=== PATIENT | female | born 1945 | race Caucasian/White ===

== ENCOUNTER 2018-11-23 06:58 | Observation (INO) ==
[2018-11-23] MEDS ORDERED: SODIUM CHLORIDE 0.9% 1,000 ML IV STA (07:29)
[2018-11-23] MEDS ORDERED: HYDROmorphone 2 MG/1 ML VIAL IV STA ×2 (07:29→10:53)
[2018-11-23] MEDS ORDERED: ONDANSETRON 4 MG/2 ML VIAL IV STA ×2 (07:29→09:34)
[2018-11-23 07:58] LABS: Basophils # 0.1 10*3/uL (0.0-0.2); Basophils % 0.2 % (0.0-0.8); Hematocrit 47.4 VOL% (35.7-47.0); Hemoglobin 15.4 GM/DL (12.0-16.0); Immature Granulocytes % 0.6 %; Immature Granulocytes Absolute 0.13 #; Lymphocytes # 0.9 10*3/uL (1.4-4.0); Lymphocytes % 4.2 % (21.3-54.2); Mean Corpuscular HGB Conc 32.5 GM/DL (32-36); Mean Platelet Volume 10.1 FL (9.6-12.0); Monocytes % 4.8 % (1.7-12.7); Neutrophils % 90.2 % (38.7-73.9); Platelet Count 429 T/CUMM (130-400); Red Blood Count 4.99 MC/CUMM (3.8-5.5); Red Cell Distribution Width 13.4 % (9.3-17.3); White Blood Count 20.8 T/CUMM (4-12)
[2018-11-23 08:16] LABS: Alanine Aminotransferase 19 U/L (13-56); Albumin 4.2 G/DL (3.4-5.0); Alkaline Phosphatase 104 U/L (45-117); Aspartate Amino Transferase 14 U/L (0-37); Bilirubin,Total < 0.39 MG/DL (0.2-1.0); Blood Urea Nitrogen 17 MG/DL (7-18); Calcium 9.5 MG/DL (8.5-10.1); Glucose 162 MG/DL (74-106); Osmolality,Calculated 280.7 MOS/KG (273-304); Total Protein 8.6 G/DL (6.4-8.3)
[2018-11-23 08:20] LABS: Hypochromasia 1+; Lymphocytes 3 % (20-55); Platelet Estimate Adequate; Segmented Neutrophils 91 % (50-85); Total Cells Counted 100
[2018-11-23 09:41] LABS: Apearance,Urine CLEAR (Clear); Bilirubin,Urine Negative (Negative); Blood, Urine Negative (Negative); Glucose,Urine (UA) Negative (Negative); Ketones,Urine 20 mg/dL (Negative); Nitrite,Urine Negative (Negative); Protein,Urine 30 MG/DL; Urine Color Yellow (Yellow); Urine Specific Gravity 1.057 (1.001-1.035); Urine Urobilinogen < 2.0 EU/DL (0.2-1.0)
[2018-11-23 09:55] LABS: Hyaline Casts,Urine Rare /LPF (0-3); Mucus,Urine Trace /LPF (Occasional); RBC,Urine Occasional /HPF (0-4); Squamous Epithelial Cell,Urine Rare /HPF (0-10); WBC,Urine Occasional /HPF (0-6)
[2018-11-23] MEDS ORDERED: ACETAMINOPHEN 325 MG TABLET PO PRN (11:54)
[2018-11-23] MEDS ORDERED: PROMETHAZINE 25 MG TABLET PO PRN (11:54)
[2018-11-23 12:45] LABS: Risk Ratio 3.29; Thyroid Stimulating Hormone 1.2 uIU/ml (0.358-3.74); VLDL CHOLESTEROL 15.4 MG/DL
[2018-11-23] MEDS: SODIUM CHLORIDE 0.9% 1,000 ML IV SCH (13:00)
[2018-11-23] MEDS: PANTOPRAZOLE 40 MG VIAL IV SCH (13:02)
[2018-11-23] MEDS: ENOXAPARIN 40 MG/0.4 ML SYRINGE SUBCUT SCH (13:05)
[2018-11-23] MEDS: metroNIDAZOLE INJ 500 MG in PREMIX 1 EACH IV SCH ×2 (13:05→20:53)
[2018-11-23] MEDS ORDERED: POTASSIUM CHLORIDE 20 MEQ TABLET PO ONE ×2 (15:02→21:00)
[2018-11-23] MEDS ORDERED: hydrALAZINE 25 MG TABLET PO PRN (15:03)
[2018-11-23] MEDS: CIPROFLOXACIN INJ 400 MG in PREMIX 1 EACH IV SCH (15:30)
[2018-11-23] MEDS: ONDANSETRON 4 MG/2 ML VIAL IV PRN ×2 (15:31→20:46)
[2018-11-23 15:49] LABS: Apearance,Urine Slightly Hazy (Clear); Bilirubin,Urine Negative (Negative); Blood, Urine Negative (Negative); Glucose,Urine (UA) Negative (Negative); Ketones,Urine 80 mg/dL (Negative); Nitrite,Urine Negative (Negative); Protein,Urine 30 MG/DL; RBC,Urine 8 /HPF (0-4); Squamous Epithelial Cell,Urine Occasional /HPF (0-10); Urine Color Yellow (Yellow); Urine Specific Gravity > 1.060 (1.001-1.035); Urine Urobilinogen < 2.0 EU/DL (0.2-1.0); WBC,Urine 2 /HPF (0-6)
[2018-11-23] MEDS ORDERED: SODIUM CHLORIDE 0.9% 1,000 ML IV ONE (15:53)
[2018-11-23] MEDS: LISINOPRIL 20 MG TABLET PO SCH (16:24)
[2018-11-23] MEDS: amLODIPine 10 MG TABLET PO SCH (16:24)
[2018-11-23] MEDS: GABAPENTIN 300 MG CAPSULE PO SCH ×2 (16:24→20:45)
[2018-11-23] MEDS ORDERED: ZALEPLON 5 MG CAPSULE PO PRN (22:05)
[2018-11-24] MEDS: ONDANSETRON 4 MG/2 ML VIAL IV PRN ×5 (01:22→20:32)
[2018-11-24] MEDS: SODIUM CHLORIDE 0.9% 1,000 ML IV SCH ×2 (01:24→14:08)
[2018-11-24] MEDS: GABAPENTIN 300 MG CAPSULE PO SCH ×4 (03:32→21:23)
[2018-11-24] MEDS: metroNIDAZOLE INJ 500 MG in PREMIX 1 EACH IV SCH ×3 (03:32→20:32)
[2018-11-24 05:22] LABS: Basophils # 0.1 10*3/uL (0.0-0.2); Basophils % 0.4 % (0.0-0.8); Hematocrit 39.2 VOL% (35.7-47.0); Hemoglobin 12.6 GM/DL (12.0-16.0); Immature Granulocytes % 0.5 %; Immature Granulocytes Absolute 0.06 #; Lymphocytes # 2.6 10*3/uL (1.4-4.0); Lymphocytes % 20.8 % (21.3-54.2); Mean Corpuscular HGB Conc 32.1 GM/DL (32-36); Mean Corpuscular Volume 97.5 FL (87-102); Mean Platelet Volume 10.7 FL (9.6-12.0); Neutrophils % 67.3 % (38.7-73.9); Platelet Count 356 T/CUMM (130-400); Red Blood Count 4.02 MC/CUMM (3.8-5.5); White Blood Count 12.3 T/CUMM (4-12)
[2018-11-24] MEDS: CIPROFLOXACIN INJ 400 MG in PREMIX 1 EACH IV SCH ×2 (05:29→21:23)
[2018-11-24 05:42] LABS: Osmolality,Calculated 289.7 MOS/KG (273-304)
[2018-11-24] MEDS: amLODIPine 10 MG TABLET PO SCH (08:31)
[2018-11-24] MEDS: PANTOPRAZOLE 40 MG VIAL IV SCH (08:31)
[2018-11-24] MEDS: ENOXAPARIN 40 MG/0.4 ML SYRINGE SUBCUT SCH (08:31)
[2018-11-24] MEDS: LISINOPRIL 20 MG TABLET PO SCH (08:31)
[2018-11-24] MEDS ORDERED: ZALEPLON 5 MG CAPSULE PO PRN (12:38)
[2018-11-24] MEDS ORDERED: HYDROmorphone 2 MG/1 ML VIAL IV PRN (12:39)
[2018-11-25] MEDS: SODIUM CHLORIDE 0.9% 1,000 ML IV SCH (02:47)
[2018-11-25] MEDS: GABAPENTIN 300 MG CAPSULE PO SCH ×3 (03:56→16:18)
[2018-11-25] MEDS: metroNIDAZOLE INJ 500 MG in PREMIX 1 EACH IV SCH ×2 (04:02→12:01)
[2018-11-25 05:48] LABS: Basophils % 0.6 % (0.0-0.8); Eosinophils # 0.1 10*3/uL (0.0-0.87); Eosinophils % 0.9 % (0.00-10.9); Hematocrit 35.6 VOL% (35.7-47.0); Hemoglobin 11.1 GM/DL (12.0-16.0); Immature Granulocytes % 0.5 %; Immature Granulocytes Absolute 0.03 #; Lymphocytes # 2.5 10*3/uL (1.4-4.0); Lymphocytes % 37.8 % (21.3-54.2); Mean Corpuscular HGB Conc 31.2 GM/DL (32-36); Mean Corpuscular Volume 100.3 FL (87-102); Mean Platelet Volume 10.5 FL (9.6-12.0); Monocytes % 9.7 % (1.7-12.7); Neutrophils % 50.5 % (38.7-73.9); Platelet Count 302 T/CUMM (130-400); Red Blood Count 3.55 MC/CUMM (3.8-5.5); Red Cell Distribution Width 14.2 % (9.3-17.3); White Blood Count 6.6 T/CUMM (4-12)
[2018-11-25 05:59] LABS: Calcium 8.7 MG/DL (8.5-10.1); Osmolality,Calculated 288.4 MOS/KG (273-304)
[2018-11-25] MEDS: ONDANSETRON 4 MG/2 ML VIAL IV PRN ×3 (06:27→16:19)
[2018-11-25] MEDS: LISINOPRIL 20 MG TABLET PO SCH (08:46)
[2018-11-25] MEDS: POTASSIUM CHLORIDE 20 MEQ TABLET PO SCH ×2 (08:46→12:01)
[2018-11-25] MEDS: amLODIPine 10 MG TABLET PO SCH (08:47)
[2018-11-25] MEDS: CIPROFLOXACIN INJ 400 MG in PREMIX 1 EACH IV SCH (08:47)
[2018-11-25] MEDS: ENOXAPARIN 40 MG/0.4 ML SYRINGE SUBCUT SCH (08:48)
[2018-11-25] MEDS: PANTOPRAZOLE 40 MG VIAL IV SCH (08:48)
[2018-11-25] MEDS ORDERED: POTASSIUM CHLORIDE 20 MEQ TABLET PO SCH (13:57)
[2018-11-25 15:59] VITALS: BP 147/72
== END 2018-11-25 18:30 | disposition home or self-care (01) ==
LOC: N.EDINP 06:58 → N.ED 06:58 → N.2E 13:24
PROVIDERS: ADMIT Internal Medicine; ATTEND Internal Medicine

== ENCOUNTER 2020-02-14 18:04 | Observation (INO) ==
[2020-02-14] MEDS ORDERED: methylPREDNISolone ACETATE 40 MG/1 ML VIAL IM STA (18:24)
[2020-02-14] MEDS ORDERED: DEXAMETHASONE 4 MG/1 ML VIAL IM STA (18:24)
[2020-02-14] MEDS ORDERED: KETOROLAC 60 MG/2 ML VIAL IM STA (18:24)
[2020-02-14] MEDS ORDERED: MORPHINE 4 MG/1 ML VIAL IM STA (18:24)
[2020-02-14] MEDS ORDERED: HYDROmorphone 2 MG/1 ML VIAL IV STA (19:43)
[2020-02-14 20:02] LABS: Basophils # 0.1 10*3/uL (0.0-0.2); Basophils % 0.6 % (0.0-0.8); Eosinophils # 0.2 10*3/uL (0.0-0.87); Eosinophils % 1.3 % (0.00-10.9); Hematocrit 43.3 VOL% (35.7-47.0); Hemoglobin 14.1 GM/DL (12.0-16.0); Immature Granulocytes % 0.5 %; Immature Granulocytes Absolute 0.06 #; Lymphocytes # 1.5 10*3/uL (1.4-4.0); Lymphocytes % 12.4 % (21.3-54.2); Mean Corpuscular HGB Conc 32.6 GM/DL (32-36); Mean Platelet Volume 9.8 FL (9.6-12.0); Monocytes % 9.7 % (1.7-12.7); Neutrophils % 75.5 % (38.7-73.9); Platelet Count 459 T/CUMM (130-400); Red Blood Count 4.33 MC/CUMM (3.8-5.5); Red Cell Distribution Width 14.8 % (9.3-17.3); White Blood Count 12.3 T/CUMM (4-12)
[2020-02-14 20:17] LABS: Albumin 3.7 G/DL (3.4-5.0); Bilirubin,Total 0.5 MG/DL (0.2-1.0); Calcium 8.9 MG/DL (8.5-10.1); Osmolality,Calculated 280.5 MOS/KG (273-304); Total Protein 7.2 G/DL (6.4-8.3)
[2020-02-14] MEDS ORDERED: DOCUSATE SODIUM 100 MG CAPSULE PO PRN (21:39)
[2020-02-14] MEDS ORDERED: ACETAMINOPHEN 325 MG TABLET PO PRN (21:39)
[2020-02-14] MEDS ORDERED: ONDANSETRON 4 MG/2 ML VIAL IV PRN (21:39)
[2020-02-14] MEDS ORDERED: ORPHENADRINE 60 MG/2 ML VIAL IV PRN (21:43)
[2020-02-14] MEDS ORDERED: IBUPROFEN 600 MG TABLET PO PRN (22:37)
[2020-02-14] MEDS: ENOXAPARIN 40 MG/0.4 ML SYRINGE SUBCUT SCH (23:46)
[2020-02-14] MEDS: ZALEPLON 5 MG CAPSULE PO PRN (23:47)
[2020-02-15] MEDS: HYDROmorphone 2 MG/1 ML VIAL IV PRN ×5 (03:13→21:04)
[2020-02-15 06:22] LABS: Basophils % 0.1 % (0.0-0.8); Hematocrit 40.9 VOL% (35.7-47.0); Hemoglobin 13.4 GM/DL (12.0-16.0); Immature Granulocytes % 0.4 %; Immature Granulocytes Absolute 0.03 #; Lymphocytes # 0.6 10*3/uL (1.4-4.0); Lymphocytes % 7.6 % (21.3-54.2); Mean Corpuscular HGB Conc 32.8 GM/DL (32-36); Mean Corpuscular Volume 99.5 FL (87-102); Mean Platelet Volume 10.6 FL (9.6-12.0); Monocytes % 4.7 % (1.7-12.7); Neutrophils % 87.2 % (38.7-73.9); Platelet Count 426 T/CUMM (130-400); Red Blood Count 4.11 MC/CUMM (3.8-5.5); Red Cell Distribution Width 15.1 % (9.3-17.3); White Blood Count 8.3 T/CUMM (4-12)
[2020-02-15 07:14] LABS: Calcium 8.8 MG/DL (8.5-10.1); Osmolality,Calculated 293.8 MOS/KG (273-304)
[2020-02-15] MEDS ORDERED: hydrALAZINE 25 MG TABLET PO PRN (08:50)
[2020-02-15] MEDS ORDERED: hydrALAZINE 20 MG/1 ML VIAL IV PRN (08:54)
[2020-02-15] MEDS: amLODIPine 10 MG TABLET PO SCH (10:07)
[2020-02-15] MEDS: PANTOPRAZOLE 40 MG TABLET PO SCH ×2 (10:07→21:05)
[2020-02-15] MEDS: lisinopriL 20 MG TABLET PO SCH (10:08)
[2020-02-15] MEDS: ENOXAPARIN 40 MG/0.4 ML SYRINGE SUBCUT SCH (21:05)
[2020-02-15] MEDS: ZALEPLON 5 MG CAPSULE PO PRN (22:59)
[2020-02-16] MEDS: HYDROmorphone 2 MG/1 ML VIAL IV PRN (02:03)
[2020-02-16 03:55] LABS: Basophils % 0.2 % (0.0-0.8); Eosinophils % 0.1 % (0.00-10.9); Hematocrit 38.7 VOL% (35.7-47.0); Hemoglobin 12.2 GM/DL (12.0-16.0); Immature Granulocytes % 0.6 %; Immature Granulocytes Absolute 0.07 #; Lymphocytes # 1.7 10*3/uL (1.4-4.0); Mean Corpuscular HGB Conc 31.5 GM/DL (32-36); Mean Corpuscular Volume 101.6 FL (87-102); Mean Platelet Volume 9.9 FL (9.6-12.0); Monocytes % 10.6 % (1.7-12.7); Neutrophils % 74.5 % (38.7-73.9); Platelet Count 382 T/CUMM (130-400); Red Blood Count 3.81 MC/CUMM (3.8-5.5); Red Cell Distribution Width 15.4 % (9.3-17.3); White Blood Count 11.9 T/CUMM (4-12)
[2020-02-16 04:18] LABS: Calcium 8.4 MG/DL (8.5-10.1); Osmolality,Calculated 284.3 MOS/KG (273-304)
[2020-02-16] MEDS: PANTOPRAZOLE 40 MG TABLET PO SCH (08:38)
[2020-02-16] MEDS: amLODIPine 10 MG TABLET PO SCH (08:38)
[2020-02-16] MEDS: lisinopriL 20 MG TABLET PO SCH (08:38)
[2020-02-16] MEDS ORDERED: BUTALBITAL/ACETAMIN/CAFFEINE 50-325-40 MG TABLET PO ONE (09:30)
[2020-02-16 12:37] VITALS: BP 175/77
== END 2020-02-16 16:11 | disposition home or self-care (01) ==
LOC: N.EDINP 18:04 → N.ED 18:04 → N.EDINP 21:40 → N.3E 21:43
PROVIDERS: ADMIT Family Medicine; ATTEND Family Medicine

== ENCOUNTER 2020-05-02 19:15 | Inpatient (IN) ==
[2020-05-02] MEDS ORDERED: SODIUM CHLORIDE 0.9% 500 ML IV STA (19:58)
[2020-05-02] MEDS ORDERED: NALOXONE 0.4 MG/ML VIAL IV STA (19:58)
[2020-05-02 20:07] LABS: Basophils # 0.1 10*3/uL (0.0-0.2); Basophils % 0.6 % (0.0-0.8); Eosinophils # 0.8 10*3/uL (0.0-0.87); Eosinophils % 6.4 % (0.00-10.9); Hematocrit 35.9 VOL% (35.7-47.0); Hemoglobin 11.5 GM/DL (12.0-16.0); Immature Granulocytes % 0.3 %; Immature Granulocytes Absolute 0.04 #; Lymphocytes # 1.4 10*3/uL (1.4-4.0); Lymphocytes % 11.6 % (21.3-54.2); Mean Corpuscular Volume 99.4 FL (87-102); Mean Platelet Volume 10.4 FL (9.6-12.0); Monocytes % 9.4 % (1.7-12.7); Neutrophils % 71.7 % (38.7-73.9); Platelet Count 230 T/CUMM (130-400); Red Blood Count 3.61 MC/CUMM (3.8-5.5); Red Cell Distribution Width 12.2 % (9.3-17.3); White Blood Count 12.2 T/CUMM (4-12)
[2020-05-02 20:23] LABS: PT Patient Result 10.7 SECS (9.8-11.9)
[2020-05-02 20:32] LABS: Alanine Aminotransferase 23 U/L (13-56); Albumin 3.2 G/DL (3.4-5.0); Alkaline Phosphatase 99 U/L (45-117); Aspartate Amino Transferase 101 U/L (0-37); Blood Urea Nitrogen 12 MG/DL (7-18); CKMB % 1.1 %; Calcium 8.5 MG/DL (8.5-10.1); Estimated Glom Filtration Rate 56 ML/MIN; Glucose 114 MG/DL (74-106); Osmolality,Calculated 270.1 MOS/KG (273-304); Troponin I < 0.015 NG/ML (0.00-0.045)
[2020-05-02 20:38] LABS: ABG Base Excess -0.1 MMOL/L (-2.5-2.5); ABG HCO3 24.2 MMOL/L (20-26); ABG PCO2 41.6 MM HG (35-48); ABG PH 7.386 (7.35-7.45); ABG PO2 57.1 MM HG (80-95); ABG TCO2 22.6 MMOL/L (23-27); Allen Test Positive
[2020-05-02] MEDS ORDERED: VANCOMYCIN INJ 1,000 MG in SODIUM CHLORIDE 0.9% 250 ML IV STA (21:12)
[2020-05-02] MEDS ORDERED: DOCUSATE SODIUM 100 MG CAPSULE PO PRN (21:25)
[2020-05-02] MEDS ORDERED: hydrALAZINE 20 MG/1 ML VIAL IV PRN (21:25)
[2020-05-02] MEDS ORDERED: ONDANSETRON 4 MG/2 ML VIAL IV PRN (21:25)
[2020-05-02] MEDS ORDERED: DEXTROSE 50% 25 GM/50 ML VIAL IV PRN (21:25)
[2020-05-02] MEDS ORDERED: guaiFENesin/DM ER 600-30 MG TABLET PO PRN (21:25)
[2020-05-02] MEDS ORDERED: GLUCAGON 1 MG VIAL IM PRN (21:25)
[2020-05-02] MEDS ORDERED: NICOTINE 21 MG/24 HR PATCH TRANSDERM PRN (21:25)
[2020-05-02 22:26] LABS: Bilirubin,Urine Negative (Negative); Blood, Urine Moderate mg/dL (Negative); Glucose,Urine (UA) Negative (Negative); Hyaline Casts,Urine 3 /LPF (0-3); Ketones,Urine Negative (Negative); Mucus,Urine Occasional /LPF (Occasional); Nitrite,Urine Negative (Negative); Protein,Urine 30 MG/DL; RBC,Urine 1 /HPF (0-4); Squamous Epithelial Cell,Urine Occasional /HPF (0-10); Urine Appearance CLEAR (Clear); Urine Color Amber (Yellow); Urine Specific Gravity 1.024 (1.001-1.035); Urine Urobilinogen < 2.0 EU/DL (0.2-1.0); WBC,Urine 4 /HPF (0-6)
[2020-05-02 22:40] LABS: Barbiturates Screen,Urine Negative (Negative); Benzodiazepines Screen,Urine Positive (Negative); Cannabinoid Screen,Urine Negative (Negative); Opiate Screen,Urine Positive (Negative); Phencyclidine Screen,Urine Negative (Negative)
[2020-05-02] MEDS: CLINDAMYCIN INJ 600 MG in PREMIX 1 EACH IV SCH (23:39)
[2020-05-02] MEDS: LEVOFLOXACIN INJ 750 MG in PREMIX 1 EACH IV SCH (23:58)
[2020-05-03] MEDS: ALBUTEROL 2.5 MG/3 ML NEB RESP TX SCH ×4 (00:22→19:08)
[2020-05-03] MEDS ORDERED: INFLUENZA VIRUS VACCINE 0.5 ML SYRINGE IM ONE (03:41)
[2020-05-03] MEDS: SODIUM CHLORIDE 0.9% 1,000 ML IV SCH ×3 (03:50→16:42)
[2020-05-03] MEDS: MORPHINE 4 MG/1 ML VIAL IV PRN ×2 (03:51→10:41)
[2020-05-03 05:37] LABS: Basophils % 0.3 % (0.0-0.8); Eosinophils # 0.7 10*3/uL (0.0-0.87); Eosinophils % 8.4 % (0.00-10.9); Hematocrit 35.4 VOL% (35.7-47.0); Hemoglobin 11.5 GM/DL (12.0-16.0); Immature Granulocytes % 0.1 %; Immature Granulocytes Absolute 0.01 #; Lymphocytes # 1.5 10*3/uL (1.4-4.0); Lymphocytes % 16.8 % (21.3-54.2); Mean Corpuscular HGB Conc 32.5 GM/DL (32-36); Mean Corpuscular Volume 97.5 FL (87-102); Mean Platelet Volume 10.6 FL (9.6-12.0); Monocytes % 10.9 % (1.7-12.7); Neutrophils % 63.5 % (38.7-73.9); Platelet Count 224 T/CUMM (130-400); Red Blood Count 3.63 MC/CUMM (3.8-5.5); Red Cell Distribution Width 11.9 % (9.3-17.3); White Blood Count 8.7 T/CUMM (4-12)
[2020-05-03 06:00] LABS: Calcium 8.3 MG/DL (8.5-10.1); Osmolality,Calculated 276.4 MOS/KG (273-304)
[2020-05-03] MEDS: CLINDAMYCIN INJ 600 MG in PREMIX 1 EACH IV SCH ×3 (06:07→21:38)
[2020-05-03] MEDS: CITALOPRAM 20 MG TABLET PO SCH (08:59)
[2020-05-03] MEDS: METOPROLOL SUCCINATE XL 25 MG TABLET PO SCH (08:59)
[2020-05-03] MEDS: ENOXAPARIN 40 MG/0.4 ML SYRINGE SUBCUT SCH (08:59)
[2020-05-03] MEDS: PANTOPRAZOLE 40 MG TABLET PO SCH (08:59)
[2020-05-03] MEDS: amLODIPine 10 MG TABLET PO SCH (08:59)
[2020-05-03] MEDS: ACETAMINOPHEN 325 MG TABLET PO PRN (08:59)
[2020-05-03] MEDS: METHOCARBAMOL 750 MG TABLET PO SCH ×3 (09:00→21:24)
[2020-05-03] MEDS ORDERED: VANCOMYCIN INJ 1,250 MG in SODIUM CHLORIDE 0.9% 250 ML IV SCH (18:00)
[2020-05-03] MEDS: diphenhydrAMINE CAP 25 MG CAPSULE PO PRN (21:24)
[2020-05-03] MEDS: LEVOFLOXACIN INJ 750 MG in PREMIX 1 EACH IV SCH (23:45)
[2020-05-04] MEDS: ALBUTEROL 2.5 MG/3 ML NEB RESP TX SCH ×4 (01:46→19:40)
[2020-05-04] MEDS: ACETAMINOPHEN 325 MG TABLET PO PRN ×4 (02:26→21:41)
[2020-05-04] MEDS: diphenhydrAMINE CAP 25 MG CAPSULE PO PRN (03:02)
[2020-05-04] MEDS: MORPHINE 4 MG/1 ML VIAL IV PRN (03:50)
[2020-05-04 05:49] LABS: Basophils % 0.5 % (0.0-0.8); Eosinophils # 0.2 10*3/uL (0.0-0.87); Eosinophils % 2.4 % (0.00-10.9); Hematocrit 33.6 VOL% (35.7-47.0); Immature Granulocytes % 0.4 %; Immature Granulocytes Absolute 0.03 #; Lymphocytes # 1.2 10*3/uL (1.4-4.0); Lymphocytes % 15.2 % (21.3-54.2); Mean Corpuscular HGB Conc 32.7 GM/DL (32-36); Mean Corpuscular Volume 96.8 FL (87-102); Mean Platelet Volume 10.6 FL (9.6-12.0); Monocytes % 14.2 % (1.7-12.7); Neutrophils % 67.3 % (38.7-73.9); Platelet Count 241 T/CUMM (130-400); Red Blood Count 3.47 MC/CUMM (3.8-5.5); Red Cell Distribution Width 11.9 % (9.3-17.3); White Blood Count 7.8 T/CUMM (4-12)
[2020-05-04] MEDS: CLINDAMYCIN INJ 600 MG in PREMIX 1 EACH IV SCH ×3 (06:00→21:45)
[2020-05-04 06:19] LABS: Calcium 8.4 MG/DL (8.5-10.1)
[2020-05-04] MEDS: SODIUM CHLORIDE 0.9% 1,000 ML IV SCH ×2 (07:03→11:01)
[2020-05-04] MEDS: ENOXAPARIN 40 MG/0.4 ML SYRINGE SUBCUT SCH (10:04)
[2020-05-04] MEDS: METHOCARBAMOL 750 MG TABLET PO SCH ×3 (10:05→21:40)
[2020-05-04] MEDS: METOPROLOL SUCCINATE XL 25 MG TABLET PO SCH (10:06)
[2020-05-04] MEDS: CITALOPRAM 20 MG TABLET PO SCH (10:06)
[2020-05-04] MEDS: POTASSIUM CHLORIDE 20 MEQ TABLET PO PRN ×4 (10:06→17:26)
[2020-05-04] MEDS: PANTOPRAZOLE 40 MG TABLET PO SCH (10:06)
[2020-05-04] MEDS: amLODIPine 10 MG TABLET PO SCH (10:06)
[2020-05-04] MEDS ORDERED: MAGNESIUM SULF RIDER 2 GM in PREMIX 1 EACH IV ONE (13:24)
[2020-05-04] MEDS: GABAPENTIN 300 MG CAPSULE PO SCH (21:40)
[2020-05-04] MEDS: ZALEPLON 5 MG CAPSULE PO SCH (21:40)
[2020-05-05] MEDS: ALBUTEROL 2.5 MG/3 ML NEB RESP TX SCH ×4 (01:34→19:52)
[2020-05-05] MEDS: POTASSIUM CHLORIDE 20 MEQ TABLET PO PRN ×3 (02:18→06:02)
[2020-05-05 05:56] LABS: Calcium 8.8 MG/DL (8.5-10.1); Osmolality,Calculated 279.1 MOS/KG (273-304)
[2020-05-05] MEDS: CLINDAMYCIN INJ 600 MG in PREMIX 1 EACH IV SCH ×3 (06:01→21:42)
[2020-05-05] MEDS: ENOXAPARIN 40 MG/0.4 ML SYRINGE SUBCUT SCH (08:08)
[2020-05-05] MEDS: ACETAMINOPHEN 325 MG TABLET PO PRN ×4 (08:09→21:40)
[2020-05-05] MEDS: PANTOPRAZOLE 40 MG TABLET PO SCH (08:09)
[2020-05-05] MEDS: GABAPENTIN 300 MG CAPSULE PO SCH ×2 (08:09→21:39)
[2020-05-05] MEDS: amLODIPine 10 MG TABLET PO SCH (08:09)
[2020-05-05] MEDS: METHOCARBAMOL 750 MG TABLET PO SCH ×3 (08:09→21:39)
[2020-05-05] MEDS: CITALOPRAM 20 MG TABLET PO SCH (08:09)
[2020-05-05] MEDS: METOPROLOL SUCCINATE XL 25 MG TABLET PO SCH (08:09)
[2020-05-05] MEDS: ZALEPLON 5 MG CAPSULE PO SCH (21:40)
[2020-05-06] MEDS: ALBUTEROL 2.5 MG/3 ML NEB RESP TX SCH ×2 (00:24→07:27)
[2020-05-06] MEDS: ACETAMINOPHEN 325 MG TABLET PO PRN ×3 (01:27→11:29)
[2020-05-06] MEDS: CLINDAMYCIN INJ 600 MG in PREMIX 1 EACH IV SCH (05:40)
[2020-05-06 06:10] LABS: Basophils # 0.1 10*3/uL (0.0-0.2); Basophils % 0.6 % (0.0-0.8); Eosinophils # 0.4 10*3/uL (0.0-0.87); Hematocrit 37.4 VOL% (35.7-47.0); Hemoglobin 12.3 GM/DL (12.0-16.0); Immature Granulocytes % 0.4 %; Immature Granulocytes Absolute 0.03 #; Lymphocytes # 1.9 10*3/uL (1.4-4.0); Lymphocytes % 24.3 % (21.3-54.2); Mean Corpuscular HGB Conc 32.9 GM/DL (32-36); Mean Corpuscular Volume 95.9 FL (87-102); Mean Platelet Volume 10.4 FL (9.6-12.0); Monocytes % 11.8 % (1.7-12.7); Neutrophils % 57.9 % (38.7-73.9); Platelet Count 320 T/CUMM (130-400); Red Cell Distribution Width 12.8 % (9.3-17.3)
[2020-05-06 06:27] LABS: Osmolality,Calculated 274.5 MOS/KG (273-304)
[2020-05-06] MEDS: amLODIPine 10 MG TABLET PO SCH (08:32)
[2020-05-06] MEDS: CITALOPRAM 20 MG TABLET PO SCH (08:32)
[2020-05-06] MEDS: METOPROLOL SUCCINATE XL 25 MG TABLET PO SCH (08:32)
[2020-05-06] MEDS: GABAPENTIN 300 MG CAPSULE PO SCH (08:32)
[2020-05-06] MEDS: ENOXAPARIN 40 MG/0.4 ML SYRINGE SUBCUT SCH (08:33)
[2020-05-06] MEDS: PANTOPRAZOLE 40 MG TABLET PO SCH (08:35)
[2020-05-06] MEDS: METHOCARBAMOL 750 MG TABLET PO SCH (08:35)
[2020-05-06] MEDS ORDERED: INFLUENZA VIRUS VACCINE 0.5 ML SYRINGE IM ONE (11:25)
[2020-05-06 11:54] VITALS: BP 175/75
== END 2020-05-06 12:20 | disposition home health service (06) | DRG 917 ==
LOC: EDUNIT# → EDBD → N.ED 19:15 → SUATTDRO 21:25 → N.EDINP 21:25 → N.TELES 05-03 04:18
PROVIDERS: ADMIT Hospitalist; ATTEND Family Medicine

== ENCOUNTER 2020-11-10 11:49 | Inpatient (IN) ==
[2020-11-10] MEDS ORDERED: ONDANSETRON 4 MG/2 ML VIAL IV STA (12:29)
[2020-11-10] MEDS ORDERED: SODIUM CHLORIDE 0.9% 2,000 ML IV STA (12:29)
[2020-11-10 12:58] LABS: Basophils % 0.1 % (0.0-0.8); Hematocrit 41.9 VOL% (35.7-47.0); Hemoglobin 14.3 GM/DL (12.0-16.0); Immature Granulocytes % 0.9 %; Immature Granulocytes Absolute 0.19 #; Lymphocytes # 0.5 10*3/uL (1.4-4.0); Lymphocytes % 2.2 % (21.3-54.2); Mean Corpuscular HGB Conc 34.1 GM/DL (32-36); Mean Corpuscular Volume 100.5 FL (87-102); Mean Platelet Volume 10.7 FL (9.6-12.0); Monocytes % 8.5 % (1.7-12.7); NRBC # 0.03 10*3/uL; Neutrophils % 88.3 % (38.7-73.9); Platelet Count 443 T/CUMM (130-400); Red Blood Count 4.17 MC/CUMM (3.8-5.5); Red Cell Distribution Width 15.4 % (9.3-17.3); White Blood Count 20.8 T/CUMM (4-12)
[2020-11-10] MEDS ORDERED: ASPIRIN CHEW 81 MG TABLET PO STA (13:10)
[2020-11-10] MEDS ORDERED: PANTOPRAZOLE 40 MG VIAL IV STA (13:11)
[2020-11-10 13:23] LABS: Alanine Aminotransferase 52 U/L (13-56); Albumin 4.5 G/DL (3.4-5.0); Alkaline Phosphatase 122 U/L (45-117); Aspartate Amino Transferase 248 U/L (0-37); Blood Urea Nitrogen 45 MG/DL (7-18); Calcium 10.8 MG/DL (8.5-10.1); Carbon Dioxide 28 MMOL/L (21-32); Estimated Glom Filtration Rate 14 ML/MIN; Glucose 166 MG/DL (74-106); Osmolality,Calculated 294.4 MOS/KG (273-304); Sodium 140 MMOL/L (136-145); Total Protein 8.4 G/DL (6.4-8.2)
[2020-11-10 13:26] LABS: Potassium 2.1 MMOL/L (3.5-5.1)
[2020-11-10] MEDS: POTASSIUM CHLORIDE RIDER 10 MEQ in PREMIX 1 EACH IV PRN (13:43)
[2020-11-10] MEDS ORDERED: POTASSIUM CHLORIDE 20 MEQ TABLET PO ONE ×2 (14:12→19:01)
[2020-11-10] MEDS ORDERED: METOPROLOL TARTRATE 25 MG TABLET PO STA (14:15)
[2020-11-10 14:41] LABS: INR 1.1; PT Patient Result 11.7 SECS (9.8-11.9); Partial Thromboplastin Time 34.5 SECS (23.9-33.8)
[2020-11-10 15:05] LABS: Hematocrit 39.8 VOL% (35.7-47.0); Hemoglobin 13.6 GM/DL (12.0-16.0)
[2020-11-10] MEDS: SODIUM CHLORIDE 0.9% 1,000 ML IV SCH (15:05)
[2020-11-10] MEDS: ONDANSETRON 4 MG/2 ML VIAL IV PRN ×3 (15:05→22:54)
[2020-11-10 15:09] LABS: Bacteria,Urine Many /HPF (Few); Bilirubin,Urine Negative (Negative); Blood, Urine Large mg/dL (Negative); Glucose,Urine (UA) Negative (Negative); Hyaline Casts,Urine 30 /LPF (0-3); Ketones,Urine Negative (Negative); Mucus,Urine Occasional /LPF (Occasional); Nitrite,Urine Positive (Negative); Protein,Urine 30 MG/DL; RBC,Urine 5 /HPF (0-4); Squamous Epithelial Cell,Urine Occasional /HPF (0-10); Urine Appearance Slightly Hazy (Clear); Urine Color Yellow (Yellow); Urine Specific Gravity 1.009 (1.001-1.035); Urine Urobilinogen < 2.0 EU/DL (0.2-1.0); WBC,Urine 6 /HPF (0-6)
[2020-11-10 15:40] LABS: Bilirubin,Total 0.9 MG/DL (0.2-1.0); Calcium 9.3 MG/DL (8.5-10.1); Total Protein 8.2 G/DL (6.4-8.2)
[2020-11-10 15:43] LABS: Potassium 2.5 MMOL/L (3.5-5.1)
[2020-11-10] MEDS ORDERED: POTASSIUM CHLORIDE RIDER 100 ML IV ONE (16:20)
[2020-11-10] MEDS: ATORVASTATIN 40 MG TABLET PO SCH (16:22)
[2020-11-10] MEDS: POTASSIUM CHLORIDE RIDER 10 MEQ in PREMIX 1 EACH IV SCH ×5 (16:25→21:54)
[2020-11-10] MEDS: PANTOPRAZOLE INJ 200 MG in SODIUM CHLORIDE 0.9% 250 ML IV SCH (18:00)
[2020-11-10] MEDS ORDERED: NITROGLYCERIN SL 0.4 MG TABLET SL PRN (18:36)
[2020-11-10 19:17] LABS: Band Neutrophils 2 % (0-10); Lymphocytes 4 % (20-55); Macrocytosis Slight; Platelet Estimate Increased; Segmented Neutrophils 89 % (50-85); Total Cells Counted 100
[2020-11-10] MEDS: ENOXAPARIN 30 MG/0.3 ML SYRINGE SUBCUT SCH (19:36)
[2020-11-10] MEDS: MORPHINE 4 MG/1 ML VIAL IV PRN ×2 (19:47→22:59)
[2020-11-10] MEDS: carvediloL 6.25 MG TABLET PO SCH (21:51)
[2020-11-10 21:52] LABS: Hematocrit 38.1 VOL% (35.7-47.0); Hemoglobin 12.5 GM/DL (12.0-16.0)
[2020-11-10 22:08] LABS: Calcium 9.2 MG/DL (8.5-10.1); Potassium 2.8 MMOL/L (3.5-5.1)
[2020-11-11] MEDS: SODIUM CHLORIDE 0.9% 1,000 ML IV SCH ×3 (00:04→18:54)
[2020-11-11] MEDS: ZALEPLON 5 MG CAPSULE PO PRN ×2 (00:19→22:06)
[2020-11-11] MEDS: NITROGLYCERIN 2% OINT 1 INCH/GM PACK TOP SCH ×4 (01:02→18:54)
[2020-11-11] MEDS: POTASSIUM CHLORIDE RIDER 10 MEQ in PREMIX 1 EACH IV PRN ×4 (02:42→09:44)
[2020-11-11 05:14] LABS: Basophils % 0.1 % (0.0-0.8); Hematocrit 36.3 VOL% (35.7-47.0); Hemoglobin 11.6 GM/DL (12.0-16.0); Immature Granulocytes % 1.4 %; Immature Granulocytes Absolute 0.41 #; Lymphocytes # 0.6 10*3/uL (1.4-4.0); Lymphocytes % 2.1 % (21.3-54.2); Mean Corpuscular Volume 105.8 FL (87-102); Mean Platelet Volume 10.8 FL (9.6-12.0); Monocytes % 6.6 % (1.7-12.7); NRBC # 0.02 10*3/uL; Neutrophils % 89.8 % (38.7-73.9); Platelet Count 275 T/CUMM (130-400); Red Blood Count 3.43 MC/CUMM (3.8-5.5)
[2020-11-11 05:32] LABS: Lymphocytes 3 % (20-55); Segmented Neutrophils 94 % (50-85); Total Cells Counted 100
[2020-11-11 05:33] LABS: Platelet Estimate Adequate
[2020-11-11 05:55] LABS: Calcium 8.9 MG/DL (8.5-10.1); Osmolality,Calculated 297.8 MOS/KG (273-304); Potassium 4.8 MMOL/L (3.5-5.1); Risk Ratio 2.07; Thyroid Stimulating Hormone 0.497 uIU/ml (0.358-3.74); VLDL CHOLESTEROL 19.8 MG/DL
[2020-11-11] MEDS: ONDANSETRON 4 MG/2 ML VIAL IV PRN ×3 (07:27→21:02)
[2020-11-11 08:09] LABS: Hematocrit 34.5 VOL% (35.7-47.0); Hemoglobin 11.5 GM/DL (12.0-16.0)
[2020-11-11] MEDS: ASPIRIN EC 81 MG TABLET PO SCH (09:43)
[2020-11-11] MEDS: ATORVASTATIN 40 MG TABLET PO SCH (09:43)
[2020-11-11] MEDS: amLODIPine 5 MG TABLET PO SCH (09:43)
[2020-11-11] MEDS: MORPHINE 4 MG/1 ML VIAL IV PRN ×3 (09:43→21:03)
[2020-11-11] MEDS: carvediloL 6.25 MG TABLET PO SCH ×2 (09:43→20:55)
[2020-11-11] MEDS: ENOXAPARIN 30 MG/0.3 ML SYRINGE SUBCUT SCH (18:54)
[2020-11-11] MEDS: PANTOPRAZOLE INJ 200 MG in SODIUM CHLORIDE 0.9% 250 ML IV SCH (18:54)
[2020-11-12] MEDS: SODIUM CHLORIDE 0.9% 1,000 ML IV SCH ×5 (00:12→19:00)
[2020-11-12] MEDS: NITROGLYCERIN 2% OINT 1 INCH/GM PACK TOP SCH ×4 (01:15→17:57)
[2020-11-12] MEDS: ONDANSETRON 4 MG/2 ML VIAL IV PRN ×2 (01:15→09:41)
[2020-11-12] MEDS: MORPHINE 4 MG/1 ML VIAL IV PRN ×3 (03:04→17:48)
[2020-11-12 05:22] LABS: Albumin 2.5 G/DL (3.4-5.0); Bilirubin,Total 0.5 MG/DL (0.2-1.0); Calcium 8.7 MG/DL (8.5-10.1); Osmolality,Calculated 285.4 MOS/KG (273-304); Potassium 4.2 MMOL/L (3.5-5.1); Total Protein 6.2 G/DL (6.4-8.2)
[2020-11-12 06:40] LABS: Basophils % 0.1 % (0.0-0.8); Hematocrit 34.7 VOL% (35.7-47.0); Hemoglobin 10.9 GM/DL (12.0-16.0); Immature Granulocytes % 0.8 %; Immature Granulocytes Absolute 0.18 #; Lymphocytes # 0.8 10*3/uL (1.4-4.0); Lymphocytes % 3.6 % (21.3-54.2); Mean Corpuscular HGB Conc 31.4 GM/DL (32-36); Mean Corpuscular Volume 107.8 FL (87-102); Monocytes % 7.2 % (1.7-12.7); Neutrophils % 88.3 % (38.7-73.9); Platelet Count 213 T/CUMM (130-400); Red Blood Count 3.22 MC/CUMM (3.8-5.5); Red Cell Distribution Width 15.3 % (9.3-17.3); White Blood Count 23.6 T/CUMM (4-12)
[2020-11-12 06:59] LABS: Hypochromasia 1+; Lymphocytes 3 % (20-55); Microcytosis 1+; Platelet Estimate Adequate; Segmented Neutrophils 91 % (50-85); Total Cells Counted 100
[2020-11-12] MEDS: ASPIRIN EC 81 MG TABLET PO SCH (08:27)
[2020-11-12] MEDS: ATORVASTATIN 40 MG TABLET PO SCH (08:27)
[2020-11-12] MEDS: amLODIPine 5 MG TABLET PO SCH (08:27)
[2020-11-12] MEDS: carvediloL 6.25 MG TABLET PO SCH ×2 (08:27→20:33)
[2020-11-12] MEDS ORDERED: POTASSIUM PHOSPHATE 20 MMOL in SODIUM CHLORIDE 0.9% 100 ML IV ONE (10:00)
[2020-11-12] MEDS: ENOXAPARIN 30 MG/0.3 ML SYRINGE SUBCUT SCH (18:01)
[2020-11-13] MEDS: SODIUM CHLORIDE 0.9% 1,000 ML IV SCH ×4 (00:40→22:50)
[2020-11-13] MEDS: NITROGLYCERIN 2% OINT 1 INCH/GM PACK TOP SCH ×4 (00:40→17:15)
[2020-11-13] MEDS: ONDANSETRON 4 MG/2 ML VIAL IV PRN ×3 (01:14→17:15)
[2020-11-13] MEDS: MORPHINE 4 MG/1 ML VIAL IV PRN ×4 (01:15→19:34)
[2020-11-13 05:48] LABS: Basophils % 0.1 % (0.0-0.8); Eosinophils % 0.2 % (0.00-10.9); Hematocrit 34.8 VOL% (35.7-47.0); Hemoglobin 10.8 GM/DL (12.0-16.0); Immature Granulocytes % 0.6 %; Immature Granulocytes Absolute 0.12 #; Lymphocytes # 0.7 10*3/uL (1.4-4.0); Lymphocytes % 3.6 % (21.3-54.2); Mean Corpuscular Volume 108.4 FL (87-102); Mean Platelet Volume 11.3 FL (9.6-12.0); Monocytes % 5.4 % (1.7-12.7); Neutrophils % 90.1 % (38.7-73.9); Platelet Count 236 T/CUMM (130-400); Red Blood Count 3.21 MC/CUMM (3.8-5.5); Red Cell Distribution Width 14.6 % (9.3-17.3); White Blood Count 19.2 T/CUMM (4-12)
[2020-11-13] MEDS ORDERED: DIAZEPAM 5 MG TABLET PO ONE (06:00)
[2020-11-13] MEDS ORDERED: diphenhydrAMINE CAP 25 MG CAPSULE PO ONE (06:00)
[2020-11-13 06:07] LABS: Calcium 8.4 MG/DL (8.5-10.1); Potassium 4.1 MMOL/L (3.5-5.1)
[2020-11-13 06:12] LABS: Eosinophils 1 % (0-10); Hypochromasia Slight; Lymphocytes 5 % (20-55); Microcytosis Slight; Platelet Estimate Adequate; Segmented Neutrophils 88 % (50-85); Total Cells Counted 100
[2020-11-13] MEDS ORDERED: HEPARIN/NACL 0.9% 2 UNITS/ML 2,000 UNIT/1,000 ML BAG IV ONE (09:10)
[2020-11-13] MEDS ORDERED: LIDOCAINE 1% 20 ML VIAL ONE (09:10)
[2020-11-13] MEDS ORDERED: MIDAZOLAM 2 MG/2 ML VIAL ONE (09:18)
[2020-11-13] MEDS ORDERED: HYDROmorphone 2 MG/1 ML VIAL ONE (09:18)
[2020-11-13] MEDS ORDERED: diphenhydrAMINE 50 MG/1 ML VIAL ONE (09:55)
[2020-11-13] MEDS ORDERED: LABETALOL 20 MG/4 ML SYRINGE IV ONE (10:21)
[2020-11-13] MEDS: amLODIPine 5 MG TABLET PO SCH (11:54)
[2020-11-13] MEDS: ASPIRIN EC 81 MG TABLET PO SCH (11:54)
[2020-11-13] MEDS: ATORVASTATIN 40 MG TABLET PO SCH (11:54)
[2020-11-13] MEDS: carvediloL 6.25 MG TABLET PO SCH ×2 (11:54→20:30)
[2020-11-13] MEDS: PANTOPRAZOLE 40 MG VIAL IV SCH (22:51)
[2020-11-14] MEDS: NITROGLYCERIN 2% OINT 1 INCH/GM PACK TOP SCH ×4 (01:49→17:46)
[2020-11-14] MEDS: MORPHINE 4 MG/1 ML VIAL IV PRN ×3 (02:05→17:37)
[2020-11-14 04:31] LABS: Basophils % 0.1 % (0.0-0.8); Eosinophils # 0.2 10*3/uL (0.0-0.87); Hematocrit 33.7 VOL% (35.7-47.0); Hemoglobin 10.8 GM/DL (12.0-16.0); Immature Granulocytes Absolute 0.17 #; Lymphocytes % 6.1 % (21.3-54.2); Mean Corpuscular Volume 105.3 FL (87-102); Neutrophils % 84.8 % (38.7-73.9); Platelet Count 226 T/CUMM (130-400); Red Cell Distribution Width 14.4 % (9.3-17.3); White Blood Count 16.5 T/CUMM (4-12)
[2020-11-14 04:54] LABS: Calcium 8.2 MG/DL (8.5-10.1); Osmolality,Calculated 279.1 MOS/KG (273-304); Potassium 3.3 MMOL/L (3.5-5.1)
[2020-11-14] MEDS: POTASSIUM CHLORIDE RIDER 10 MEQ in PREMIX 1 EACH IV PRN ×4 (05:30→11:22)
[2020-11-14] MEDS: SODIUM CHLORIDE 0.9% 1,000 ML IV SCH ×2 (06:00→15:40)
[2020-11-14] MEDS ORDERED: hydrALAZINE 20 MG/1 ML VIAL ONE (06:23)
[2020-11-14] MEDS: hydrALAZINE 20 MG/1 ML VIAL IV PRN ×2 (06:23→06:35)
[2020-11-14] MEDS ORDERED: LABETALOL 20 MG/4 ML SYRINGE IV ONE (06:49)
[2020-11-14] MEDS: PANTOPRAZOLE 40 MG VIAL IV SCH ×2 (09:00→20:46)
[2020-11-14] MEDS: amLODIPine 5 MG TABLET PO SCH (09:00)
[2020-11-14] MEDS: carvediloL 12.5 MG TABLET PO SCH ×2 (09:00→20:46)
[2020-11-14] MEDS: ATORVASTATIN 40 MG TABLET PO SCH (09:00)
[2020-11-14] MEDS: ASPIRIN EC 81 MG TABLET PO SCH (09:00)
[2020-11-14] MEDS: LACTATED RINGERS 1,000 ML IV SCH (10:36)
[2020-11-14] MEDS ORDERED: ETOMIDATE 20 MG/10 ML VIAL IV ONE (14:12)
[2020-11-14] MEDS ORDERED: LIDOCAINE 2% 5 ML VIAL ONE (14:12)
[2020-11-14] MEDS ORDERED: FUROSEMIDE 40 MG/4 ML VIAL IV ONE (14:53)
[2020-11-14 16:25] LABS: ABG Base Excess -0.1 MMOL/L (-2.5-2.5); ABG HCO3 23.5 MMOL/L (20-26); ABG Oxygen Saturation 97.8 % (95-100); ABG PCO2 35.2 MM HG (35-48); ABG PH 7.443 (7.35-7.45); ABG PO2 98.8 MM HG (80-95); ABG TCO2 24.6 MMOL/L (23-27); Allen Test Positive; Pt O2 Delivery Device Venturi Mask
[2020-11-14] MEDS ORDERED: ALBUTEROL/IPRATROPIUM 3 ML NEB RESP TX PRN (17:08)
[2020-11-14] MEDS: MEROPENEM 500 MG in SODIUM CHLORIDE 0.9% 100 ML IV SCH ×2 (17:38→21:47)
[2020-11-15] MEDS: SODIUM CHLORIDE 0.9% 1,000 ML IV SCH ×3 (02:39→14:11)
[2020-11-15] MEDS: MORPHINE 4 MG/1 ML VIAL IV PRN ×4 (04:10→23:50)
[2020-11-15] MEDS: MEROPENEM 500 MG in SODIUM CHLORIDE 0.9% 100 ML IV SCH ×4 (04:13→22:20)
[2020-11-15] MEDS: NITROGLYCERIN 2% OINT 1 INCH/GM PACK TOP SCH ×4 (05:35→18:09)
[2020-11-15 07:05] LABS: Basophils % 0.2 % (0.0-0.8); Eosinophils # 0.2 10*3/uL (0.0-0.87); Eosinophils % 1.9 % (0.00-10.9); Hematocrit 30.5 VOL% (35.7-47.0); Hemoglobin 10.1 GM/DL (12.0-16.0); Immature Granulocytes % 1.2 %; Immature Granulocytes Absolute 0.15 #; Lymphocytes % 8.1 % (21.3-54.2); Mean Corpuscular HGB Conc 33.1 GM/DL (32-36); Mean Platelet Volume 11.4 FL (9.6-12.0); Monocytes % 11.3 % (1.7-12.7); Neutrophils % 77.3 % (38.7-73.9); Platelet Count 219 T/CUMM (130-400); Red Blood Count 2.96 MC/CUMM (3.8-5.5); Red Cell Distribution Width 14.6 % (9.3-17.3); White Blood Count 12.7 T/CUMM (4-12)
[2020-11-15 07:36] LABS: Albumin 1.8 G/DL (3.4-5.0); Bilirubin,Total 0.4 MG/DL (0.2-1.0); Calcium 8.2 MG/DL (8.5-10.1); Osmolality,Calculated 280.1 MOS/KG (273-304); Potassium 3.5 MMOL/L (3.5-5.1); Total Protein 5.1 G/DL (6.4-8.2)
[2020-11-15] MEDS: LACTATED RINGERS 1,000 ML IV SCH (08:45)
[2020-11-15] MEDS: carvediloL 12.5 MG TABLET PO SCH ×2 (08:53→20:39)
[2020-11-15] MEDS: ATORVASTATIN 40 MG TABLET PO SCH (08:53)
[2020-11-15] MEDS: amLODIPine 5 MG TABLET PO SCH (08:53)
[2020-11-15] MEDS: ASPIRIN EC 81 MG TABLET PO SCH (08:53)
[2020-11-15] MEDS: PANTOPRAZOLE 40 MG VIAL IV SCH ×2 (08:54→20:40)
[2020-11-15] MEDS: FUROSEMIDE 40 MG/4 ML VIAL IV SCH (08:54)
[2020-11-15] MEDS: ONDANSETRON 4 MG/2 ML VIAL IV PRN (09:09)
[2020-11-15] MEDS ORDERED: MAGNESIUM SULF RIDER 2 GM/50 ML PREMIX IV ONE (15:36)
[2020-11-15 17:20] LABS: Hepatitis B Core IgM Quant 0.08 Index; Hepatitis B Surface Ag Quant < 0.10 Index; Hepatitis B Surface Ag Result Non-Reactive (NonReactive); Hepatitis C Virus Ab Quant 0.15 Index; Hepatitis C Virus Ab Result Non-Reactive (NonReactive)
[2020-11-16] MEDS: NITROGLYCERIN 2% OINT 1 INCH/GM PACK TOP SCH ×4 (01:02→17:10)
[2020-11-16] MEDS: MEROPENEM 500 MG in SODIUM CHLORIDE 0.9% 100 ML IV SCH ×4 (04:24→22:41)
[2020-11-16 06:13] LABS: Basophils % 0.1 % (0.0-0.8); Eosinophils # 0.3 10*3/uL (0.0-0.87); Eosinophils % 3.5 % (0.00-10.9); Hematocrit 29.1 VOL% (35.7-47.0); Hemoglobin 9.6 GM/DL (12.0-16.0); Immature Granulocytes % 2.5 %; Immature Granulocytes Absolute 0.24 #; Lymphocytes # 1.5 10*3/uL (1.4-4.0); Lymphocytes % 15.2 % (21.3-54.2); Mean Corpuscular Volume 102.5 FL (87-102); Mean Platelet Volume 11.4 FL (9.6-12.0); Monocytes % 16.3 % (1.7-12.7); Neutrophils % 62.4 % (38.7-73.9); Platelet Count 260 T/CUMM (130-400); Red Blood Count 2.84 MC/CUMM (3.8-5.5); Red Cell Distribution Width 14.4 % (9.3-17.3); White Blood Count 9.5 T/CUMM (4-12)
[2020-11-16 06:46] LABS: Eosinophils 4 % (0-10); Hypochromasia Slight; Lymphocytes 16 % (20-55); Macrocytosis Slight; Platelet Estimate Normal; Segmented Neutrophils 72 % (50-85); Total Cells Counted 100
[2020-11-16 06:53] LABS: Calcium 7.9 MG/DL (8.5-10.1); Osmolality,Calculated 279.3 MOS/KG (273-304); Potassium 3.1 MMOL/L (3.5-5.1)
[2020-11-16] MEDS: MORPHINE 4 MG/1 ML VIAL IV PRN ×2 (09:40→17:14)
[2020-11-16] MEDS: FUROSEMIDE 40 MG/4 ML VIAL IV SCH (09:41)
[2020-11-16] MEDS: PANTOPRAZOLE 40 MG VIAL IV SCH ×2 (09:41→20:55)
[2020-11-16] MEDS: amLODIPine 5 MG TABLET PO SCH (09:41)
[2020-11-16] MEDS: carvediloL 12.5 MG TABLET PO SCH ×2 (09:42→20:50)
[2020-11-16] MEDS: POTASSIUM CHLORIDE 20 MEQ TABLET PO SCH (09:42)
[2020-11-16] MEDS: ATORVASTATIN 40 MG TABLET PO SCH (09:42)
[2020-11-16] MEDS: ASPIRIN EC 81 MG TABLET PO SCH (09:42)
[2020-11-16] MEDS ORDERED: ALUM/MAG/SIMETH/LIDO VISC 1:1 30 ML BOTTLE PO ONE (11:18)
[2020-11-16] MEDS: ZALEPLON 5 MG CAPSULE PO PRN (22:46)
[2020-11-17] MEDS: MORPHINE 4 MG/1 ML VIAL IV PRN ×3 (00:26→15:59)
[2020-11-17] MEDS: NITROGLYCERIN 2% OINT 1 INCH/GM PACK TOP SCH ×4 (02:50→17:08)
[2020-11-17] MEDS: MEROPENEM 500 MG in SODIUM CHLORIDE 0.9% 100 ML IV SCH ×4 (05:02→21:31)
[2020-11-17 05:13] LABS: Basophils % 0.3 % (0.0-0.8); Eosinophils # 0.2 10*3/uL (0.0-0.87); Eosinophils % 2.4 % (0.00-10.9); Hemoglobin 9.3 GM/DL (12.0-16.0); Immature Granulocytes % 3.4 %; Immature Granulocytes Absolute 0.27 #; Lymphocytes # 1.8 10*3/uL (1.4-4.0); Lymphocytes % 22.8 % (21.3-54.2); Mean Corpuscular HGB Conc 33.2 GM/DL (32-36); Mean Corpuscular Volume 101.4 FL (87-102); Mean Platelet Volume 11.5 FL (9.6-12.0); Neutrophils % 54.1 % (38.7-73.9); Platelet Count 255 T/CUMM (130-400); Red Blood Count 2.76 MC/CUMM (3.8-5.5); Red Cell Distribution Width 14.6 % (9.3-17.3)
[2020-11-17 05:28] LABS: Osmolality,Calculated 278.3 MOS/KG (273-304)
[2020-11-17 05:36] LABS: Hypochromasia 1+; Lymphocytes 23 % (20-55); Microcytosis 1+; Platelet Estimate Adequate; Segmented Neutrophils 57 % (50-85); Total Cells Counted 100
[2020-11-17] MEDS: ATORVASTATIN 40 MG TABLET PO SCH (09:34)
[2020-11-17] MEDS: ASPIRIN EC 81 MG TABLET PO SCH (09:34)
[2020-11-17] MEDS: amLODIPine 5 MG TABLET PO SCH (09:34)
[2020-11-17] MEDS: FUROSEMIDE 40 MG/4 ML VIAL IV SCH (09:35)
[2020-11-17] MEDS: POTASSIUM CHLORIDE 20 MEQ TABLET PO SCH (09:35)
[2020-11-17] MEDS: carvediloL 12.5 MG TABLET PO SCH ×2 (09:35→21:31)
[2020-11-17] MEDS: PANTOPRAZOLE 40 MG VIAL IV SCH ×2 (09:36→21:30)
[2020-11-17] MEDS: ZALEPLON 5 MG CAPSULE PO PRN (21:31)
[2020-11-18] MEDS: NITROGLYCERIN 2% OINT 1 INCH/GM PACK TOP SCH ×3 (00:54→12:53)
[2020-11-18] MEDS: MORPHINE 4 MG/1 ML VIAL IV PRN (00:55)
[2020-11-18 05:38] LABS: Basophils % 0.2 % (0.0-0.8); Eosinophils # 0.2 10*3/uL (0.0-0.87); Eosinophils % 2.3 % (0.00-10.9); Hematocrit 30.1 VOL% (35.7-47.0); Hemoglobin 9.6 GM/DL (12.0-16.0); Immature Granulocytes % 2.2 %; Immature Granulocytes Absolute 0.18 #; Mean Corpuscular HGB Conc 31.9 GM/DL (32-36); Mean Corpuscular Volume 105.2 FL (87-102); Mean Platelet Volume 11.1 FL (9.6-12.0); Monocytes % 16.5 % (1.7-12.7); Neutrophils % 53.8 % (38.7-73.9); Platelet Count 291 T/CUMM (130-400); Red Blood Count 2.86 MC/CUMM (3.8-5.5); Red Cell Distribution Width 14.4 % (9.3-17.3); White Blood Count 8.1 T/CUMM (4-12)
[2020-11-18 05:56] LABS: Calcium 8.6 MG/DL (8.5-10.1); Osmolality,Calculated 278.3 MOS/KG (273-304)
[2020-11-18 06:05] LABS: Band Neutrophils 1 % (0-10); Eosinophils 4 % (0-10); Lymphocytes 17 % (20-55); Segmented Neutrophils 62 % (50-85); Total Cells Counted 100
[2020-11-18 06:06] LABS: Hypochromasia 1+; Microcytosis 1+; Platelet Estimate Adequate
[2020-11-18] MEDS: MEROPENEM 500 MG in SODIUM CHLORIDE 0.9% 100 ML IV SCH ×2 (06:08→10:12)
[2020-11-18] MEDS: amLODIPine 5 MG TABLET PO SCH (10:01)
[2020-11-18] MEDS: ATORVASTATIN 40 MG TABLET PO SCH (10:01)
[2020-11-18] MEDS: POTASSIUM CHLORIDE 20 MEQ TABLET PO SCH (10:01)
[2020-11-18] MEDS: carvediloL 12.5 MG TABLET PO SCH ×2 (10:02→21:59)
[2020-11-18] MEDS: ASPIRIN EC 81 MG TABLET PO SCH (10:02)
[2020-11-18] MEDS: PANTOPRAZOLE 40 MG VIAL IV SCH ×2 (10:11→22:00)
[2020-11-18] MEDS: FUROSEMIDE 40 MG/4 ML VIAL IV SCH (10:12)
[2020-11-18] MEDS: DOXYCYCLINE HYCLATE 100 MG CAPSULE PO SCH (21:59)
[2020-11-18] MEDS: ONDANSETRON 4 MG/2 ML VIAL IV PRN (22:32)
[2020-11-19] MEDS: ONDANSETRON 4 MG/2 ML VIAL IV PRN ×2 (08:27→22:30)
[2020-11-19] MEDS: FUROSEMIDE 40 MG/4 ML VIAL IV SCH (08:29)
[2020-11-19] MEDS: PANTOPRAZOLE 40 MG VIAL IV SCH ×2 (08:30→21:45)
[2020-11-19] MEDS: POTASSIUM CHLORIDE 20 MEQ TABLET PO SCH (08:32)
[2020-11-19] MEDS: ASPIRIN EC 81 MG TABLET PO SCH (08:33)
[2020-11-19] MEDS: carvediloL 25 MG TABLET PO SCH ×2 (08:33→21:45)
[2020-11-19] MEDS: amLODIPine 5 MG TABLET PO SCH (08:33)
[2020-11-19] MEDS: DOXYCYCLINE HYCLATE 100 MG CAPSULE PO SCH ×2 (08:33→21:45)
[2020-11-19] MEDS: ATORVASTATIN 40 MG TABLET PO SCH (08:34)
[2020-11-19] MEDS: SUCRALFATE 1 GM TABLET PO SCH ×2 (17:03→21:45)
[2020-11-20] MEDS: ASPIRIN EC 81 MG TABLET PO SCH (09:33)
[2020-11-20] MEDS: DOXYCYCLINE HYCLATE 100 MG CAPSULE PO SCH ×2 (09:33→20:56)
[2020-11-20] MEDS: amLODIPine 5 MG TABLET PO SCH (09:34)
[2020-11-20] MEDS: carvediloL 25 MG TABLET PO SCH ×2 (09:34→20:56)
[2020-11-20] MEDS: POTASSIUM CHLORIDE 20 MEQ TABLET PO SCH (09:34)
[2020-11-20] MEDS: SUCRALFATE 1 GM TABLET PO SCH ×4 (09:34→20:56)
[2020-11-20] MEDS: ATORVASTATIN 40 MG TABLET PO SCH (09:34)
[2020-11-20] MEDS: FUROSEMIDE 40 MG/4 ML VIAL IV SCH (09:35)
[2020-11-20] MEDS: PANTOPRAZOLE 40 MG VIAL IV SCH (09:35)
[2020-11-20] MEDS ORDERED: ALBUTEROL/IPRATROPIUM 3 ML NEB RESP TX ONE (10:55)
[2020-11-20] MEDS: ALBUTEROL/IPRATROPIUM 3 ML NEB RESP TX SCH ×2 (12:50→20:07)
[2020-11-20] MEDS: PANTOPRAZOLE 40 MG TABLET PO SCH (17:36)
[2020-11-20] MEDS: ONDANSETRON 4 MG/2 ML VIAL IV PRN (23:43)
[2020-11-21] MEDS: ALBUTEROL/IPRATROPIUM 3 ML NEB RESP TX SCH ×4 (01:47→18:37)
[2020-11-21] MEDS: PANTOPRAZOLE 40 MG TABLET PO SCH ×2 (06:07→18:00)
[2020-11-21] MEDS: ASPIRIN EC 81 MG TABLET PO SCH (09:14)
[2020-11-21] MEDS: SUCRALFATE 1 GM TABLET PO SCH ×4 (09:14→21:22)
[2020-11-21] MEDS: DOXYCYCLINE HYCLATE 100 MG CAPSULE PO SCH ×2 (09:14→21:22)
[2020-11-21] MEDS: carvediloL 25 MG TABLET PO SCH ×2 (09:14→21:22)
[2020-11-21] MEDS: POTASSIUM CHLORIDE 20 MEQ TABLET PO SCH (09:14)
[2020-11-21] MEDS: ATORVASTATIN 40 MG TABLET PO SCH (09:15)
[2020-11-21] MEDS: amLODIPine 5 MG TABLET PO SCH (09:15)
[2020-11-21] MEDS: FUROSEMIDE 40 MG/4 ML VIAL IV SCH (09:15)
[2020-11-22] MEDS: ALBUTEROL/IPRATROPIUM 3 ML NEB RESP TX SCH ×4 (01:45→20:04)
[2020-11-22] MEDS: ONDANSETRON 4 MG/2 ML VIAL IV PRN ×2 (02:26→13:33)
[2020-11-22] MEDS: PANTOPRAZOLE 40 MG TABLET PO SCH ×2 (06:11→18:05)
[2020-11-22] MEDS: ASPIRIN EC 81 MG TABLET PO SCH (09:00)
[2020-11-22 09:08] LABS: Basophils # 0.1 10*3/uL (0.0-0.2); Basophils % 0.9 % (0.0-0.8); Eosinophils # 0.1 10*3/uL (0.0-0.87); Hematocrit 29.8 VOL% (35.7-47.0); Hemoglobin 9.7 GM/DL (12.0-16.0); Immature Granulocytes % 0.7 %; Immature Granulocytes Absolute 0.05 #; Lymphocytes # 1.8 10*3/uL (1.4-4.0); Lymphocytes % 26.2 % (21.3-54.2); Mean Corpuscular HGB Conc 32.6 GM/DL (32-36); Mean Corpuscular Volume 102.1 FL (87-102); Mean Platelet Volume 10.7 FL (9.6-12.0); Monocytes % 11.9 % (1.7-12.7); Neutrophils % 58.3 % (38.7-73.9); Platelet Count 350 T/CUMM (130-400); Red Blood Count 2.92 MC/CUMM (3.8-5.5); Red Cell Distribution Width 13.8 % (9.3-17.3)
[2020-11-22] MEDS: ATORVASTATIN 40 MG TABLET PO SCH (09:24)
[2020-11-22] MEDS: amLODIPine 5 MG TABLET PO SCH (09:25)
[2020-11-22] MEDS: carvediloL 25 MG TABLET PO SCH ×2 (09:25→20:31)
[2020-11-22] MEDS: DOXYCYCLINE HYCLATE 100 MG CAPSULE PO SCH (09:25)
[2020-11-22] MEDS: POTASSIUM CHLORIDE 20 MEQ TABLET PO SCH (09:25)
[2020-11-22 09:46] LABS: Albumin 2.7 G/DL (3.4-5.0); Bilirubin,Total 0.6 MG/DL (0.2-1.0); Calcium 9.1 MG/DL (8.5-10.1); Osmolality,Calculated 277.3 MOS/KG (273-304); Total Protein 6.5 G/DL (6.4-8.2)
[2020-11-22] MEDS: LACTATED RINGERS 1,000 ML IV SCH (12:45)
[2020-11-22] MEDS ORDERED: LIDOCAINE 2% 5 ML VIAL ONE (13:10)
[2020-11-22] MEDS ORDERED: propofoL 200 MG/20 ML VIAL IV ONE (13:10)
[2020-11-22] MEDS ORDERED: ETOMIDATE 20 MG/10 ML VIAL IV ONE (13:10)
[2020-11-22] MEDS: SUCRALFATE 1 GM TABLET PO SCH ×3 (14:35→20:31)
[2020-11-22] MEDS: FUROSEMIDE 40 MG/4 ML VIAL IV SCH (15:06)
[2020-11-23] MEDS: ALBUTEROL/IPRATROPIUM 3 ML NEB RESP TX SCH ×4 (02:28→20:20)
[2020-11-23] MEDS: PANTOPRAZOLE 40 MG TABLET PO SCH ×2 (06:10→17:56)
[2020-11-23] MEDS: SUCRALFATE 1 GM TABLET PO SCH ×4 (07:57→22:23)
[2020-11-23] MEDS: ASPIRIN EC 81 MG TABLET PO SCH (09:20)
[2020-11-23] MEDS: amLODIPine 5 MG TABLET PO SCH (09:20)
[2020-11-23] MEDS: ATORVASTATIN 40 MG TABLET PO SCH (09:20)
[2020-11-23] MEDS: POTASSIUM CHLORIDE 20 MEQ TABLET PO SCH (09:20)
[2020-11-23] MEDS: FUROSEMIDE 40 MG/4 ML VIAL IV SCH (09:20)
[2020-11-23] MEDS: carvediloL 25 MG TABLET PO SCH ×2 (09:20→22:23)
[2020-11-23] MEDS: LACTATED RINGERS 1,000 ML IV SCH (10:39)
[2020-11-24] MEDS ORDERED: ACETAMINOPHEN 325 MG TABLET PO PRN (00:33)
[2020-11-24] MEDS: ALBUTEROL/IPRATROPIUM 3 ML NEB RESP TX SCH ×4 (00:45→19:35)
[2020-11-24] MEDS: PANTOPRAZOLE 40 MG TABLET PO SCH ×2 (06:03→18:01)
[2020-11-24] MEDS: FUROSEMIDE 40 MG/4 ML VIAL IV SCH (08:38)
[2020-11-24] MEDS: ATORVASTATIN 40 MG TABLET PO SCH (08:40)
[2020-11-24] MEDS: POTASSIUM CHLORIDE 20 MEQ TABLET PO SCH (08:40)
[2020-11-24] MEDS: amLODIPine 5 MG TABLET PO SCH (08:40)
[2020-11-24] MEDS: carvediloL 25 MG TABLET PO SCH ×2 (08:41→20:23)
[2020-11-24] MEDS: ASPIRIN EC 81 MG TABLET PO SCH (08:41)
[2020-11-24] MEDS: SUCRALFATE 1 GM TABLET PO SCH ×4 (08:41→20:23)
[2020-11-24] MEDS: LACTATED RINGERS 1,000 ML IV SCH (08:42)
[2020-11-24 08:50] LABS: Basophils # 0.1 10*3/uL (0.0-0.2); Eosinophils # 0.2 10*3/uL (0.0-0.87); Eosinophils % 2.4 % (0.00-10.9); Hematocrit 32.2 VOL% (35.7-47.0); Hemoglobin 10.3 GM/DL (12.0-16.0); Immature Granulocytes % 0.4 %; Immature Granulocytes Absolute 0.03 #; Lymphocytes # 2.2 10*3/uL (1.4-4.0); Lymphocytes % 33.6 % (21.3-54.2); Mean Corpuscular Volume 103.2 FL (87-102); Mean Platelet Volume 10.4 FL (9.6-12.0); Monocytes % 11.7 % (1.7-12.7); Neutrophils % 50.9 % (38.7-73.9); Platelet Count 336 T/CUMM (130-400); Red Blood Count 3.12 MC/CUMM (3.8-5.5); Red Cell Distribution Width 13.8 % (9.3-17.3); White Blood Count 6.7 T/CUMM (4-12)
[2020-11-24 09:05] LABS: Calcium 9.1 MG/DL (8.5-10.1)
[2020-11-25] MEDS: ALBUTEROL/IPRATROPIUM 3 ML NEB RESP TX SCH ×2 (00:30→07:56)
[2020-11-25] MEDS: FUROSEMIDE 40 MG/4 ML VIAL IV SCH (08:47)
[2020-11-25] MEDS: ATORVASTATIN 40 MG TABLET PO SCH (08:47)
[2020-11-25] MEDS: ASPIRIN EC 81 MG TABLET PO SCH (08:47)
[2020-11-25] MEDS: POTASSIUM CHLORIDE 20 MEQ TABLET PO SCH (08:48)
[2020-11-25] MEDS: carvediloL 25 MG TABLET PO SCH (08:48)
[2020-11-25] MEDS: SUCRALFATE 1 GM TABLET PO SCH ×2 (08:48→12:51)
[2020-11-25] MEDS: LACTATED RINGERS 1,000 ML IV SCH (08:48)
[2020-11-25] MEDS: amLODIPine 5 MG TABLET PO SCH (08:48)
[2020-11-25] MEDS: PANTOPRAZOLE 40 MG TABLET PO SCH (08:49)
[2020-11-25 13:33] VITALS: BP 132/62
== END 2020-11-25 13:34 | disposition home health service (06) | DRG 280 ==
LOC: N.ED 11:49 → SUATTDRO 14:07 → N.EDINP 14:07 → N.CC 15:25 → N.TELEN 11-14 17:36
PROVIDERS: ADMIT Internal Medicine; ATTEND Internal Medicine
PROC: CLCCHCL (ICD-10-PCS; 2020-11-13 09:15)

== ENCOUNTER 2020-11-27 20:48 | Inpatient (IN) ==
[2020-11-27] MEDS ORDERED: PANTOPRAZOLE 40 MG VIAL IV STA (21:13)
[2020-11-27] MEDS ORDERED: SODIUM CHLORIDE 0.9% 1,000 ML IV STA ×2 (21:13→22:27)
[2020-11-27] MEDS ORDERED: ALUM/MAG/SIMETH/LIDO VISC 1:1 30 ML BOTTLE PO STA (21:13)
[2020-11-27 21:23] LABS: Basophils # 0.1 10*3/uL (0.0-0.2); Basophils % 1.8 % (0.0-0.8); Eosinophils # 0.1 10*3/uL (0.0-0.87); Eosinophils % 1.2 % (0.00-10.9); Hematocrit 34.9 VOL% (35.7-47.0); Hemoglobin 11.2 GM/DL (12.0-16.0); Immature Granulocytes % 0.4 %; Immature Granulocytes Absolute 0.03 #; Lymphocytes # 2.2 10*3/uL (1.4-4.0); Lymphocytes % 30.8 % (21.3-54.2); Mean Corpuscular HGB Conc 32.1 GM/DL (32-36); Mean Corpuscular Volume 103.6 FL (87-102); Mean Platelet Volume 10.3 FL (9.6-12.0); Monocytes % 12.7 % (1.7-12.7); Neutrophils % 53.1 % (38.7-73.9); Platelet Count 398 T/CUMM (130-400); Red Blood Count 3.37 MC/CUMM (3.8-5.5); Red Cell Distribution Width 13.4 % (9.3-17.3); White Blood Count 7.2 T/CUMM (4-12)
[2020-11-27 21:32] LABS: INR 1.1; PT Patient Result 11.8 SECS (10.5-12.0)
[2020-11-27 21:42] LABS: Amylase 74 U/L (25-115)
[2020-11-27 21:43] LABS: Albumin 3.2 G/DL (3.4-5.0); Bilirubin,Total 0.6 MG/DL (0.2-1.0); Calcium 8.9 MG/DL (8.5-10.1); Osmolality,Calculated 278.5 MOS/KG (273-304); Potassium 3.7 MMOL/L (3.5-5.1); Total Protein 6.6 G/DL (6.4-8.2)
[2020-11-27] MEDS ORDERED: ONDANSETRON 4 MG/2 ML VIAL IV PRN (22:28)
[2020-11-27] MEDS ORDERED: BISACODYL 5 MG TABLET PO PRN (22:28)
[2020-11-27] MEDS ORDERED: GLUCAGON 1 MG VIAL IM PRN (22:28)
[2020-11-27] MEDS ORDERED: guaiFENesin/DM ER 600-30 MG TABLET PO PRN (22:28)
[2020-11-27] MEDS ORDERED: hydrALAZINE 20 MG/1 ML VIAL IV PRN (22:28)
[2020-11-27] MEDS ORDERED: diphenhydrAMINE CAP 25 MG CAPSULE PO PRN (22:28)
[2020-11-27] MEDS ORDERED: NICOTINE 21 MG/24 HR PATCH TRANSDERM PRN (22:28)
[2020-11-27] MEDS ORDERED: DEXTROSE 50% 25 GM/50 ML VIAL IV PRN (22:28)
[2020-11-27] MEDS: SODIUM CHLORIDE 0.9% 1,000 ML IV SCH (23:57)
[2020-11-28 01:10] LABS: Albumin 2.8 G/DL (3.4-5.0); Bilirubin,Total 0.6 MG/DL (0.2-1.0); Calcium 8.3 MG/DL (8.5-10.1); Osmolality,Calculated 284.1 MOS/KG (273-304); Potassium 3.2 MMOL/L (3.5-5.1)
[2020-11-28 01:15] LABS: Basophils # 0.1 10*3/uL (0.0-0.2); Basophils % 1.1 % (0.0-0.8); Eosinophils % 0.6 % (0.00-10.9); Hematocrit 31.5 VOL% (35.7-47.0); Hemoglobin 10.3 GM/DL (12.0-16.0); Immature Granulocytes % 0.9 %; Immature Granulocytes Absolute 0.06 #; Lymphocytes # 1.5 10*3/uL (1.4-4.0); Lymphocytes % 21.2 % (21.3-54.2); Mean Corpuscular HGB Conc 32.7 GM/DL (32-36); Mean Corpuscular Volume 103.6 FL (87-102); Mean Platelet Volume 10.7 FL (9.6-12.0); Monocytes % 9.7 % (1.7-12.7); Neutrophils % 66.5 % (38.7-73.9); Platelet Count 333 T/CUMM (130-400); Red Blood Count 3.04 MC/CUMM (3.8-5.5); Red Cell Distribution Width 13.4 % (9.3-17.3)
[2020-11-28] MEDS ORDERED: POTASSIUM CHLORIDE 20 MEQ TABLET PO PRN (07:53)
[2020-11-28] MEDS: HEPARIN 5,000 UNIT/1 ML VIAL SUBCUT SCH ×2 (08:53→21:29)
[2020-11-28] MEDS: ACETAMINOPHEN 325 MG TABLET PO PRN ×2 (08:53→15:16)
[2020-11-28] MEDS ORDERED: PANTOPRAZOLE 40 MG TABLET PO SCH (09:00)
[2020-11-28] MEDS ORDERED: MAGNESIUM SULF RIDER 4 GM/100 ML PREMIX IV PRN (09:11)
[2020-11-28] MEDS: MAGNESIUM SULF RIDER 2 GM/50 ML PREMIX IV PRN (10:38)
[2020-11-28] MEDS ORDERED: SODIUM CHLORIDE 0.9% 500 ML IV ONE (11:21)
[2020-11-28 12:50] LABS: Hematocrit 28.4 VOL% (35.7-47.0); Hemoglobin 9.2 GM/DL (12.0-16.0)
[2020-11-28] MEDS: SODIUM CHLORIDE 0.9% 1,000 ML IV SCH ×2 (13:41→21:00)
[2020-11-28] MEDS: SUCRALFATE 1 GM TABLET PO SCH ×3 (15:15→21:28)
[2020-11-28 17:18] LABS: Hematocrit 30.5 VOL% (35.7-47.0); Hemoglobin 9.8 GM/DL (12.0-16.0)
[2020-11-28] MEDS: PANTOPRAZOLE 40 MG TABLET PO SCH (17:43)
[2020-11-28] MEDS: CITALOPRAM 20 MG TABLET PO SCH (21:26)
[2020-11-28] MEDS: GABAPENTIN 300 MG CAPSULE PO SCH (21:27)
[2020-11-28 22:16] LABS: Barbiturates Screen,Urine Negative (Negative); Benzodiazepines Screen,Urine Positive (Negative); Cannabinoid Screen,Urine Negative (Negative); Opiate Screen,Urine Positive (Negative); Phencyclidine Screen,Urine Negative (Negative)
[2020-11-29 00:48] LABS: Hematocrit 29.4 VOL% (35.7-47.0); Hemoglobin 9.5 GM/DL (12.0-16.0)
[2020-11-29] MEDS: SODIUM CHLORIDE 0.9% 1,000 ML IV SCH ×3 (01:35→10:55)
[2020-11-29 05:39] LABS: Basophils # 0.1 10*3/uL (0.0-0.2); Basophils % 1.2 % (0.0-0.8); Eosinophils # 0.1 10*3/uL (0.0-0.87); Eosinophils % 2.5 % (0.00-10.9); Hematocrit 26.1 VOL% (35.7-47.0); Hemoglobin 8.5 GM/DL (12.0-16.0); Immature Granulocytes % 0.4 %; Immature Granulocytes Absolute 0.02 #; Lymphocytes # 2.6 10*3/uL (1.4-4.0); Lymphocytes % 53.4 % (21.3-54.2); Mean Corpuscular HGB Conc 32.6 GM/DL (32-36); Mean Corpuscular Volume 104.4 FL (87-102); Mean Platelet Volume 10.5 FL (9.6-12.0); Neutrophils % 30.5 % (38.7-73.9); Platelet Count 286 T/CUMM (130-400); Red Cell Distribution Width 13.5 % (9.3-17.3); White Blood Count 4.8 T/CUMM (4-12)
[2020-11-29 06:07] LABS: Band Neutrophils 1 % (0-10); Eosinophils 6 % (0-10); Lymphocytes 49 % (20-55); Macrocytosis Slight; Platelet Estimate Normal; Segmented Neutrophils 36 % (50-85); Total Cells Counted 100
[2020-11-29] MEDS: PANTOPRAZOLE 40 MG TABLET PO SCH ×2 (06:07→18:13)
[2020-11-29 06:08] LABS: Hypochromasia Slight; Osmolality,Calculated 287.6 MOS/KG (273-304); Potassium 3.8 MMOL/L (3.5-5.1)
[2020-11-29] MEDS: SUCRALFATE 1 GM TABLET PO SCH ×4 (10:34→20:30)
[2020-11-29] MEDS: HEPARIN 5,000 UNIT/1 ML VIAL SUBCUT SCH ×2 (10:34→20:30)
[2020-11-29] MEDS: GABAPENTIN 300 MG CAPSULE PO SCH ×2 (10:35→20:30)
[2020-11-29] MEDS: FENOFIBRATE 145 MG TABLET PO SCH (10:35)
[2020-11-29] MEDS: ATORVASTATIN 40 MG TABLET PO SCH (10:35)
[2020-11-29] MEDS: KETOROLAC 30 MG/1 ML VIAL IV PRN (16:11)
[2020-11-29] MEDS: CITALOPRAM 20 MG TABLET PO SCH (20:30)
[2020-11-29] MEDS: carvediloL 25 MG TABLET PO SCH (20:30)
[2020-11-30 05:42] LABS: Basophils # 0.1 10*3/uL (0.0-0.2); Basophils % 1.3 % (0.0-0.8); Eosinophils # 0.2 10*3/uL (0.0-0.87); Eosinophils % 3.3 % (0.00-10.9); Hematocrit 27.1 VOL% (35.7-47.0); Hemoglobin 8.4 GM/DL (12.0-16.0); Immature Granulocytes % 0.2 %; Immature Granulocytes Absolute 0.01 #; Lymphocytes # 2.6 10*3/uL (1.4-4.0); Lymphocytes % 53.4 % (21.3-54.2); Mean Platelet Volume 10.6 FL (9.6-12.0); Monocytes % 12.5 % (1.7-12.7); Neutrophils % 29.3 % (38.7-73.9); Platelet Count 286 T/CUMM (130-400); Red Blood Count 2.51 MC/CUMM (3.8-5.5); Red Cell Distribution Width 13.6 % (9.3-17.3); White Blood Count 4.8 T/CUMM (4-12)
[2020-11-30 06:01] LABS: Calcium 8.2 MG/DL (8.5-10.1); Osmolality,Calculated 286.6 MOS/KG (273-304)
[2020-11-30] MEDS: PANTOPRAZOLE 40 MG TABLET PO SCH (06:15)
[2020-11-30 07:14] LABS: Atypical Lymphocytes Few; Eosinophils 2 % (0-10); Lymphocytes 51 % (20-55); Macrocytosis 1+; Platelet Estimate Normal; Polychromasia Slight; Segmented Neutrophils 34 % (50-85); Total Cells Counted 100
[2020-11-30] MEDS: SUCRALFATE 1 GM TABLET PO SCH ×3 (09:06→15:33)
[2020-11-30] MEDS: GABAPENTIN 300 MG CAPSULE PO SCH (09:06)
[2020-11-30] MEDS: carvediloL 25 MG TABLET PO SCH (09:06)
[2020-11-30] MEDS: FENOFIBRATE 145 MG TABLET PO SCH (09:07)
[2020-11-30] MEDS: ATORVASTATIN 40 MG TABLET PO SCH (09:07)
[2020-11-30] MEDS: HEPARIN 5,000 UNIT/1 ML VIAL SUBCUT SCH (09:07)
[2020-11-30] MEDS: KETOROLAC 30 MG/1 ML VIAL IV PRN (13:29)
[2020-11-30] MEDS: MAGNESIUM SULF RIDER 2 GM/50 ML PREMIX IV PRN (13:30)
[2020-11-30 16:13] VITALS: BP 158/69
== END 2020-11-30 18:24 | disposition home health service (06) | DRG 682 ==
LOC: N.ED 20:48 → N.EDINP 20:48 → N.TELES 23:51 → SUATTDRO 11-28 14:13
PROVIDERS: ADMIT Internal Medicine; ATTEND Internal Medicine

== ENCOUNTER 2020-12-24 11:02 | Inpatient (IN) ==
[2020-12-24] MEDS ORDERED: SODIUM CHLORIDE 0.9% 1,000 ML IV STA (11:21)
[2020-12-24 11:49] LABS: Basophils % 0.5 % (0.0-0.8); Eosinophils # 0.2 10*3/uL (0.0-0.87); Eosinophils % 3.4 % (0.00-10.9); Hematocrit 30.8 VOL% (35.7-47.0); Hemoglobin 9.7 GM/DL (12.0-16.0); Immature Granulocytes % 0.3 %; Immature Granulocytes Absolute 0.02 #; Lymphocytes # 1.7 10*3/uL (1.4-4.0); Lymphocytes % 25.9 % (21.3-54.2); Mean Corpuscular HGB Conc 31.5 GM/DL (32-36); Mean Corpuscular Volume 103.4 FL (87-102); Mean Platelet Volume 11.2 FL (9.6-12.0); Monocytes % 6.8 % (1.7-12.7); Neutrophils % 63.1 % (38.7-73.9); Platelet Count 184 T/CUMM (130-400); Red Blood Count 2.98 MC/CUMM (3.8-5.5); Red Cell Distribution Width 13.1 % (9.3-17.3); White Blood Count 6.5 T/CUMM (4-12)
[2020-12-24 11:59] LABS: INR 1.1; PT Patient Result 11.9 SECS (10.5-12.0); Partial Thromboplastin Time 27.1 SECS (23.9-33.8)
[2020-12-24 12:10] LABS: Alanine Aminotransferase 15 U/L (13-56); Albumin 3.4 G/DL (3.4-5.0); Alkaline Phosphatase 69 U/L (45-117); Aspartate Amino Transferase 18 U/L (0-37); Blood Urea Nitrogen 19 MG/DL (7-18); Calcium 8.9 MG/DL (8.5-10.1); Carbon Dioxide 26 MMOL/L (21-32); Estimated Glom Filtration Rate 40 ML/MIN; Glucose 146 MG/DL (74-106); Osmolality,Calculated 287.1 MOS/KG (273-304); Potassium 3.4 MMOL/L (3.5-5.1); Sodium 142 MMOL/L (136-145); Total Protein 6.6 G/DL (6.4-8.2)
[2020-12-24 12:22] LABS: Bacteria,Urine Occasional /HPF (Few); Bilirubin,Urine Negative (Negative); Blood, Urine Negative (Negative); Glucose,Urine (UA) Negative (Negative); Hyaline Casts,Urine 20 /LPF (0-3); Ketones,Urine Negative (Negative); Mucus,Urine Occasional /LPF (Occasional); Nitrite,Urine Positive (Negative); Protein,Urine Negative; RBC,Urine 1 /HPF (0-4); Squamous Epithelial Cell,Urine Moderate /HPF (0-10); Urine Appearance CLOUDY (Clear); Urine Color Yellow (Yellow); Urine Specific Gravity 1.012 (1.001-1.035); Urine Urobilinogen < 2.0 EU/DL (0.2-1.0)
[2020-12-24 12:25] LABS: Barbiturates Screen,Urine Negative (Negative); Benzodiazepines Screen,Urine Positive (Negative); Cannabinoid Screen,Urine Negative (Negative); Opiate Screen,Urine Negative (Negative); Phencyclidine Screen,Urine Negative (Negative)
[2020-12-24] MEDS ORDERED: LEVOFLOXACIN 500 MG TABLET PO STA (14:11)
[2020-12-24] MEDS ORDERED: DEXTROSE 50% 25 GM/50 ML VIAL IV PRN (14:42)
[2020-12-24] MEDS ORDERED: DOCUSATE SODIUM 100 MG CAPSULE PO PRN (14:42)
[2020-12-24] MEDS ORDERED: GLUCAGON 1 MG VIAL IM PRN (14:42)
[2020-12-24] MEDS: ACETAMINOPHEN 325 MG TABLET PO PRN ×2 (16:35→20:39)
[2020-12-24] MEDS: SUCRALFATE 1 GM TABLET PO SCH ×2 (17:38→20:39)
[2020-12-24] MEDS: PANTOPRAZOLE 40 MG TABLET PO SCH (17:38)
[2020-12-24] MEDS: POTASSIUM CHLORIDE 20 MEQ TABLET PO PRN ×2 (17:38→20:39)
[2020-12-24] MEDS: FUROSEMIDE 20 MG TABLET PO SCH (20:30)
[2020-12-24] MEDS: GABAPENTIN 300 MG CAPSULE PO SCH (20:32)
[2020-12-24] MEDS: ENOXAPARIN 40 MG/0.4 ML SYRINGE SUBCUT SCH (20:38)
[2020-12-24] MEDS ORDERED: SODIUM CHLORIDE 0.9% 500 ML IV ONE (21:28)
[2020-12-25] MEDS: MELATONIN 3 MG TABLET PO PRN (00:38)
[2020-12-25] MEDS: POTASSIUM CHLORIDE 20 MEQ TABLET PO PRN (01:25)
[2020-12-25] MEDS: PANTOPRAZOLE 40 MG TABLET PO SCH ×2 (05:31→18:30)
[2020-12-25 06:34] LABS: Basophils % 0.3 % (0.0-0.8); Eosinophils # 0.3 10*3/uL (0.0-0.87); Eosinophils % 5.3 % (0.00-10.9); Hematocrit 29.6 VOL% (35.7-47.0); Hemoglobin 9.3 GM/DL (12.0-16.0); Immature Granulocytes % 0.2 %; Immature Granulocytes Absolute 0.01 #; Lymphocytes # 1.5 10*3/uL (1.4-4.0); Lymphocytes % 23.5 % (21.3-54.2); Mean Corpuscular HGB Conc 31.4 GM/DL (32-36); Mean Corpuscular Volume 105.3 FL (87-102); Mean Platelet Volume 11.7 FL (9.6-12.0); Monocytes % 11.3 % (1.7-12.7); Neutrophils % 59.4 % (38.7-73.9); Platelet Count 156 T/CUMM (130-400); Red Blood Count 2.81 MC/CUMM (3.8-5.5); Red Cell Distribution Width 12.9 % (9.3-17.3); White Blood Count 6.2 T/CUMM (4-12)
[2020-12-25 06:47] LABS: Calcium 8.9 MG/DL (8.5-10.1); Osmolality,Calculated 282.3 MOS/KG (273-304); Potassium 4.4 MMOL/L (3.5-5.1)
[2020-12-25] MEDS: FOLIC ACID 1 MG TABLET PO SCH (08:57)
[2020-12-25] MEDS: MONTELUKAST 10 MG TABLET PO SCH (08:57)
[2020-12-25] MEDS: LIDOCAINE 5% PATCH TRANSDERM SCH (08:57)
[2020-12-25] MEDS: ATORVASTATIN 40 MG TABLET PO SCH (08:57)
[2020-12-25] MEDS: clonazePAM 0.5 MG TABLET PO SCH (08:57)
[2020-12-25] MEDS: MAGNESIUM OXIDE 400 MG TABLET PO SCH (08:57)
[2020-12-25] MEDS: ASPIRIN EC 81 MG TABLET PO SCH (08:57)
[2020-12-25] MEDS: FUROSEMIDE 20 MG TABLET PO SCH ×2 (08:57→20:35)
[2020-12-25] MEDS: GABAPENTIN 300 MG CAPSULE PO SCH ×2 (08:57→20:35)
[2020-12-25] MEDS: SUCRALFATE 1 GM TABLET PO SCH ×4 (09:49→20:36)
[2020-12-25] MEDS: FENOFIBRATE 145 MG TABLET PO SCH (09:49)
[2020-12-25] MEDS: LEVOFLOXACIN INJ 500 MG/100 ML PREMIX IV SCH (12:44)
[2020-12-25] MEDS: ENOXAPARIN 40 MG/0.4 ML SYRINGE SUBCUT SCH (20:35)
[2020-12-26] MEDS: MORPHINE 4 MG/1 ML VIAL IV PRN ×5 (02:29→22:04)
[2020-12-26] MEDS: ONDANSETRON 4 MG/2 ML VIAL IV PRN ×3 (06:28→20:11)
[2020-12-26 06:44] LABS: Basophils % 0.2 % (0.0-0.8); Eosinophils # 0.3 10*3/uL (0.0-0.87); Eosinophils % 3.6 % (0.00-10.9); Hematocrit 30.7 VOL% (35.7-47.0); Hemoglobin 9.7 GM/DL (12.0-16.0); Immature Granulocytes % 0.2 %; Immature Granulocytes Absolute 0.02 #; Lymphocytes # 2.4 10*3/uL (1.4-4.0); Lymphocytes % 29.8 % (21.3-54.2); Mean Corpuscular HGB Conc 31.6 GM/DL (32-36); Mean Corpuscular Volume 104.1 FL (87-102); Mean Platelet Volume 11.4 FL (9.6-12.0); Monocytes % 10.5 % (1.7-12.7); Neutrophils % 55.7 % (38.7-73.9); Platelet Count 179 T/CUMM (130-400); Red Blood Count 2.95 MC/CUMM (3.8-5.5); Red Cell Distribution Width 12.8 % (9.3-17.3)
[2020-12-26 07:20] LABS: Calcium 9.1 MG/DL (8.5-10.1); Osmolality,Calculated 284.8 MOS/KG (273-304); Potassium 3.5 MMOL/L (3.5-5.1)
[2020-12-26] MEDS: PANTOPRAZOLE 40 MG TABLET PO SCH ×2 (07:22→17:47)
[2020-12-26] MEDS ORDERED: ERGOCALCIFEROL 50,000 UNIT CAPSULE PO SCH (08:00)
[2020-12-26] MEDS: FUROSEMIDE 20 MG TABLET PO SCH ×2 (09:13→20:04)
[2020-12-26] MEDS: clonazePAM 0.5 MG TABLET PO SCH (09:13)
[2020-12-26] MEDS: MONTELUKAST 10 MG TABLET PO SCH (09:13)
[2020-12-26] MEDS: ASPIRIN EC 81 MG TABLET PO SCH (09:13)
[2020-12-26] MEDS: FENOFIBRATE 145 MG TABLET PO SCH (09:13)
[2020-12-26] MEDS: FOLIC ACID 1 MG TABLET PO SCH (09:13)
[2020-12-26] MEDS: SUCRALFATE 1 GM TABLET PO SCH ×4 (09:14→20:03)
[2020-12-26] MEDS: MAGNESIUM OXIDE 400 MG TABLET PO SCH (09:15)
[2020-12-26] MEDS: LIDOCAINE 5% PATCH TRANSDERM SCH (09:16)
[2020-12-26] MEDS: ATORVASTATIN 40 MG TABLET PO SCH (09:16)
[2020-12-26] MEDS: GABAPENTIN 300 MG CAPSULE PO SCH ×2 (09:16→20:04)
[2020-12-26] MEDS: LEVOFLOXACIN INJ 500 MG/100 ML PREMIX IV SCH (11:07)
[2020-12-26] MEDS: cefTRIAXone 1,000 MG in SODIUM CHLORIDE 0.9% 100 ML IV SCH (14:51)
[2020-12-26] MEDS: MELATONIN 3 MG TABLET PO PRN (20:03)
[2020-12-26] MEDS: ENOXAPARIN 40 MG/0.4 ML SYRINGE SUBCUT SCH (20:03)
[2020-12-27] MEDS: MORPHINE 4 MG/1 ML VIAL IV PRN ×3 (02:19→21:48)
[2020-12-27] MEDS: PANTOPRAZOLE 40 MG TABLET PO SCH ×2 (06:12→17:51)
[2020-12-27 06:37] LABS: Basophils % 0.4 % (0.0-0.8); Eosinophils # 0.4 10*3/uL (0.0-0.87); Eosinophils % 5.5 % (0.00-10.9); Hematocrit 31.7 VOL% (35.7-47.0); Hemoglobin 9.8 GM/DL (12.0-16.0); Immature Granulocytes % 0.3 %; Immature Granulocytes Absolute 0.02 #; Lymphocytes % 39.1 % (21.3-54.2); Mean Corpuscular HGB Conc 30.9 GM/DL (32-36); Mean Platelet Volume 11.6 FL (9.6-12.0); Monocytes % 9.7 % (1.7-12.7); Platelet Count 202 T/CUMM (130-400); Red Blood Count 3.02 MC/CUMM (3.8-5.5); White Blood Count 7.6 T/CUMM (4-12)
[2020-12-27 07:08] LABS: Calcium 8.9 MG/DL (8.5-10.1); Osmolality,Calculated 279.3 MOS/KG (273-304); Potassium 3.6 MMOL/L (3.5-5.1)
[2020-12-27] MEDS: FOLIC ACID 1 MG TABLET PO SCH (09:02)
[2020-12-27] MEDS: MONTELUKAST 10 MG TABLET PO SCH (09:03)
[2020-12-27] MEDS: GABAPENTIN 300 MG CAPSULE PO SCH ×2 (09:03→21:57)
[2020-12-27] MEDS: ATORVASTATIN 40 MG TABLET PO SCH (09:03)
[2020-12-27] MEDS: ASPIRIN EC 81 MG TABLET PO SCH (09:03)
[2020-12-27] MEDS: FENOFIBRATE 145 MG TABLET PO SCH (09:03)
[2020-12-27] MEDS: clonazePAM 0.5 MG TABLET PO SCH (09:04)
[2020-12-27] MEDS: MAGNESIUM OXIDE 400 MG TABLET PO SCH (09:04)
[2020-12-27] MEDS: SUCRALFATE 1 GM TABLET PO SCH ×4 (09:04→21:57)
[2020-12-27] MEDS: FUROSEMIDE 20 MG TABLET PO SCH ×2 (09:04→21:56)
[2020-12-27] MEDS: LIDOCAINE 5% PATCH TRANSDERM SCH (09:05)
[2020-12-27] MEDS ORDERED: KETOROLAC 30 MG/1 ML VIAL IM ONE (13:59)
[2020-12-27] MEDS ORDERED: KETOROLAC 10 MG TABLET PO PRN (14:37)
[2020-12-27] MEDS: cefTRIAXone 1,000 MG in SODIUM CHLORIDE 0.9% 100 ML IV SCH (15:08)
[2020-12-27] MEDS: ENOXAPARIN 40 MG/0.4 ML SYRINGE SUBCUT SCH (21:56)
[2020-12-27] MEDS: MELATONIN 3 MG TABLET PO PRN (21:57)
[2020-12-28] MEDS: MORPHINE 4 MG/1 ML VIAL IV PRN ×2 (02:13→10:50)
[2020-12-28] MEDS: PANTOPRAZOLE 40 MG TABLET PO SCH (05:53)
[2020-12-28] MEDS: clonazePAM 0.5 MG TABLET PO SCH (08:28)
[2020-12-28] MEDS: MAGNESIUM OXIDE 400 MG TABLET PO SCH (08:28)
[2020-12-28] MEDS: GABAPENTIN 300 MG CAPSULE PO SCH (08:28)
[2020-12-28] MEDS: LIDOCAINE 5% PATCH TRANSDERM SCH (08:29)
[2020-12-28] MEDS: ATORVASTATIN 40 MG TABLET PO SCH (08:29)
[2020-12-28] MEDS: MONTELUKAST 10 MG TABLET PO SCH (08:29)
[2020-12-28] MEDS: FUROSEMIDE 20 MG TABLET PO SCH (08:29)
[2020-12-28] MEDS: SUCRALFATE 1 GM TABLET PO SCH ×2 (08:29→10:49)
[2020-12-28] MEDS: FOLIC ACID 1 MG TABLET PO SCH (08:29)
[2020-12-28] MEDS: ASPIRIN EC 81 MG TABLET PO SCH (08:29)
[2020-12-28] MEDS: FENOFIBRATE 145 MG TABLET PO SCH (08:29)
[2020-12-28 11:59] VITALS: BP 119/56
== END 2020-12-28 15:03 | disposition home or self-care (01) | DRG 543 ==
LOC: EDUNIT# → N.EDINP 11:02 → N.ED 11:02 → SUATTDRO 14:22 → N.5E 15:14
PROVIDERS: ADMIT Hospitalist; ATTEND Emergency Medicine

== ENCOUNTER 2021-02-21 00:14 | Inpatient (IN) ==
[2021-02-21] MEDS ORDERED: DOPamine 800 MG/250 ML PREMIX IV ONE (00:48)
[2021-02-21] MEDS: DOPamine 800 MG/250 ML PREMIX IV PRN ×2 (00:50→13:43)
[2021-02-21] MEDS ORDERED: EPINEPHrine 1 MG/10 ML SYRINGE ONE (00:54)
[2021-02-21] MEDS ORDERED: SODIUM CHLORIDE 0.9% 1,000 ML IV STA (00:56)
[2021-02-21] MEDS ORDERED: EPINEPHrine 1 MG/10 ML SYRINGE IV STA (00:56)
[2021-02-21 01:07] LABS: Basophils % 0.1 % (0.0-0.8); Hematocrit 21.8 VOL% (35.7-47.0); Hemoglobin 7.2 GM/DL (12.0-16.0); Immature Granulocytes % 0.9 %; Immature Granulocytes Absolute 0.08 #; Lymphocytes # 1.9 10*3/uL (1.4-4.0); Lymphocytes % 21.4 % (21.3-54.2); Mean Platelet Volume 11.1 FL (9.6-12.0); Neutrophils % 67.6 % (38.7-73.9); Platelet Count 217 T/CUMM (130-400); Red Blood Count 2.27 MC/CUMM (3.8-5.5); White Blood Count 8.7 T/CUMM (4-12)
[2021-02-21] MEDS ORDERED: NALOXONE 0.4 MG/ML VIAL IV STA (01:15)
[2021-02-21] MEDS ORDERED: NALOXONE 0.4 MG/ML VIAL ONE (01:16)
[2021-02-21] MEDS ORDERED: SODIUM CHLORIDE 0.9% 1,000 ML IV PRN (01:21)
[2021-02-21 01:28] LABS: Albumin 3.1 G/DL (3.4-5.0); Bilirubin,Total 0.5 MG/DL (0.20-1.00); Calcium 7.6 MG/DL (8.5-10.1); Osmolality,Calculated 268.5 MOS/KG (273-304); Potassium 3.7 MMOL/L (3.5-5.1); Thyroid Stimulating Hormone 2.23 uIU/ml (0.358-3.74); Total Protein 6.1 G/DL (6.4-8.2)
[2021-02-21 01:29] LABS: INR 1.2; PT Patient Result 13.8 SECS (10.5-12.0)
[2021-02-21 01:30] LABS: Barbiturates Screen,Urine Negative (Negative); Benzodiazepines Screen,Urine Positive (Negative); Cannabinoid Screen,Urine Negative (Negative); Opiate Screen,Urine Negative (Negative); Phencyclidine Screen,Urine Negative (Negative)
[2021-02-21 01:53] LABS: Bacteria,Urine Occasional /HPF (Few); Bilirubin,Urine Negative (Negative); Blood, Urine Negative (Negative); Glucose,Urine (UA) Negative (Negative); Granular Casts,Urine 1 /LPF (0-1); Hyaline Casts,Urine 145 /LPF (0-3); Ketones,Urine Negative (Negative); Mucus,Urine Occasional /LPF (Occasional); Nitrite,Urine Negative (Negative); Protein,Urine 30 MG/DL; RBC,Urine 3 /HPF (0-4); Renal Epithelial Cells,Urine Occasional /HPF (<1); Squamous Epithelial Cell,Urine Occasional /HPF (0-10); Urine Appearance Slightly Hazy (Clear); Urine Color Amber (Yellow); Urine Specific Gravity 1.026 (1.001-1.035); Urine Urobilinogen < 2.0 EU/DL (0.2-1.0)
[2021-02-21 02:16] LABS: ABG Base Excess -8.7 MMOL/L (-2.5-2.5); ABG HCO3 17.3 MMOL/L (20-26); ABG Oxygen Saturation 90.9 % (95-100); ABG PCO2 21.6 MM HG (35-48); ABG PH 7.437 (7.35-7.45); ABG PO2 60.4 MM HG (80-95); ABG TCO2 13.8 MMOL/L (23-27)
[2021-02-21] MEDS ORDERED: ALBUTEROL 2.5 MG/3 ML NEB RESP TX PRN (02:43)
[2021-02-21] MEDS ORDERED: ONDANSETRON 4 MG/2 ML VIAL IV PRN (02:50)
[2021-02-21] MEDS ORDERED: flumazeniL 0.5 MG/5 ML VIAL IV ONE (02:52)
[2021-02-21] MEDS: SODIUM CHLORIDE 0.9% 1,000 ML IV SCH ×2 (05:00→15:41)
[2021-02-21] MEDS ORDERED: fentaNYL INJ 1,250 MCG in SODIUM CHLORIDE 0.9% 225 ML IV PRN (05:48)
[2021-02-21] MEDS ORDERED: ETOMIDATE 20 MG/10 ML VIAL IV ONE (05:54)
[2021-02-21] MEDS ORDERED: ROCURONIUM 100 MG/10 ML VIAL IV ONE (05:55)
[2021-02-21] MEDS: VASOPRESSIN 100 UNITS in SODIUM CHLORIDE 0.9% 95 ML IV SCH ×5 (06:23→21:38)
[2021-02-21 06:40] LABS: Basophils % 0.3 % (0.0-0.8); Eosinophils % 0.2 % (0.00-10.9); Hematocrit 24.7 VOL% (35.7-47.0); Hemoglobin 7.9 GM/DL (12.0-16.0); Immature Granulocytes % 1.6 %; Immature Granulocytes Absolute 0.22 #; Lymphocytes # 3.4 10*3/uL (1.4-4.0); Lymphocytes % 23.7 % (21.3-54.2); Mean Corpuscular Volume 96.1 FL (87-102); Mean Platelet Volume 11.5 FL (9.6-12.0); Monocytes % 12.4 % (1.7-12.7); Neutrophils % 61.8 % (38.7-73.9); Platelet Count 248 T/CUMM (130-400); Red Blood Count 2.57 MC/CUMM (3.8-5.5); Red Cell Distribution Width 16.5 % (9.3-17.3); White Blood Count 14.2 T/CUMM (4-12)
[2021-02-21] MEDS: PHENYLEPHRINE DRIP 40 MG/250 ML PREMIX IV PRN ×3 (07:00→19:16)
[2021-02-21 07:03] LABS: Bilirubin,Total 0.8 MG/DL (0.20-1.00); Calcium 6.9 MG/DL (8.5-10.1); Osmolality,Calculated 274.4 MOS/KG (273-304); Potassium 3.7 MMOL/L (3.5-5.1); Total Protein 5.8 G/DL (6.4-8.2)
[2021-02-21] MEDS: HYDROCORTISONE 100 MG VIAL IV SCH ×3 (09:12→20:51)
[2021-02-21] MEDS: MEROPENEM 500 MG in SODIUM CHLORIDE 0.9% 100 ML IV SCH ×3 (09:15→20:51)
[2021-02-21] MEDS: PANTOPRAZOLE 40 MG VIAL IV SCH ×2 (09:45→20:51)
[2021-02-21] MEDS: MIDAZOLAM 100 MG in SODIUM CHLORIDE 0.9% 80 ML IV PRN (10:46)
[2021-02-21] MEDS: FLUDROCORTISONE 0.1 MG TABLET PER TUBE SCH ×2 (12:30→20:50)
[2021-02-21 17:09] LABS: ABG HCO3 10.1 MMOL/L (20-26); ABG Oxygen Saturation 96.4 % (95-100); ABG PCO2 22.6 MM HG (35-48); ABG PH 7.268 (7.35-7.45); ABG PO2 96.8 MM HG (80-95); ABG TCO2 10.8 MMOL/L (23-27)
[2021-02-21] MEDS ORDERED: SODIUM BICARBONATE 50 MEQ/50 ML VIAL IV ONE ×3 (17:14→21:37)
[2021-02-21] MEDS: SODIUM BICARB INJ 100 MEQ in SODIUM CHLORIDE 0.45% 1,000 ML IV SCH (18:09)
[2021-02-21 21:14] LABS: ABG Base Excess -9.7 MMOL/L (-2.5-2.5); ABG HCO3 12.7 MMOL/L (20-26); ABG Oxygen Saturation 96.5 % (95-100); ABG PO2 86.7 MM HG (80-95); ABG TCO2 13.3 MMOL/L (23-27)
[2021-02-21 21:15] LABS: ABG PCO2 19.6 MM HG (35-48)
[2021-02-21] MEDS ORDERED: CALCIUM GLUCONATE 1,000 MG in SODIUM CHLORIDE 0.9% 100 ML IV ONE (21:37)
[2021-02-22 00:03] LABS: ABG Base Excess -5.7 MMOL/L (-2.5-2.5); ABG HCO3 19.7 MMOL/L (20-26); ABG Oxygen Saturation 99.1 % (95-100); ABG PCO2 22.2 MM HG (35-48); ABG PH 7.479 (7.35-7.45)
[2021-02-22] MEDS: DOPamine 800 MG/250 ML PREMIX IV PRN ×2 (00:32→11:44)
[2021-02-22] MEDS: VASOPRESSIN 100 UNITS in SODIUM CHLORIDE 0.9% 95 ML IV SCH ×6 (02:07→20:44)
[2021-02-22 02:39] LABS: ABG Base Excess -5.2 MMOL/L (-2.5-2.5); ABG HCO3 16.6 MMOL/L (20-26); ABG Oxygen Saturation 94.9 % (95-100); ABG PCO2 22.3 MM HG (35-48); ABG PO2 73.7 MM HG (80-95); ABG TCO2 17.3 MMOL/L (23-27)
[2021-02-22 02:45] LABS: Basophils % 0.2 % (0.0-0.8); Eosinophils % 0.1 % (0.00-10.9); Hematocrit 29.2 VOL% (35.7-47.0); Immature Granulocytes % 1.8 %; Immature Granulocytes Absolute 0.34 #; Lymphocytes # 1.6 10*3/uL (1.4-4.0); Lymphocytes % 8.3 % (21.3-54.2); Mean Corpuscular HGB Conc 33.6 GM/DL (32-36); Mean Platelet Volume 11.1 FL (9.6-12.0); Monocytes % 7.3 % (1.7-12.7); NRBC # 0.21 10*3/uL; Neutrophils % 82.3 % (38.7-73.9); Platelet Count 250 T/CUMM (130-400); Red Cell Distribution Width 17.9 % (9.3-17.3)
[2021-02-22 02:47] LABS: Hemoglobin 9.8 GM/DL (12.0-16.0); Red Blood Count 3.21 MC/CUMM (3.8-5.5); White Blood Count 19.3 T/CUMM (4-12)
[2021-02-22 02:58] LABS: Calcium 6.8 MG/DL (8.5-10.1); Osmolality,Calculated 280.8 MOS/KG (273-304)
[2021-02-22 03:03] LABS: Albumin 2.4 G/DL (3.4-5.0); Bilirubin,Total 1.1 MG/DL (0.20-1.00); Calcium 6.9 MG/DL (8.5-10.1); Osmolality,Calculated 281.7 MOS/KG (273-304); Total Protein 5.4 G/DL (6.4-8.2)
[2021-02-22] MEDS: HYDROCORTISONE 100 MG VIAL IV SCH ×4 (03:37→21:07)
[2021-02-22] MEDS: MEROPENEM 500 MG in SODIUM CHLORIDE 0.9% 100 ML IV SCH ×3 (03:37→21:03)
[2021-02-22] MEDS: MIDAZOLAM 100 MG in SODIUM CHLORIDE 0.9% 80 ML IV PRN ×2 (03:43→18:30)
[2021-02-22] MEDS: PHENYLEPHRINE DRIP 40 MG/250 ML PREMIX IV PRN ×5 (05:07→19:21)
[2021-02-22] MEDS: SODIUM BICARB INJ 100 MEQ in SODIUM CHLORIDE 0.45% 1,000 ML IV SCH ×2 (05:07→15:35)
[2021-02-22] MEDS ORDERED: MAGNESIUM SULF RIDER 2 GM/50 ML PREMIX IV ONE (05:10)
[2021-02-22 05:29] LABS: ABG Base Excess -9.1 MMOL/L (-2.5-2.5); ABG HCO3 17.1 MMOL/L (20-26); ABG Oxygen Saturation 97.1 % (95-100); ABG PH 7.368 (7.35-7.45); ABG PO2 96.8 MM HG (80-95); ABG TCO2 13.7 MMOL/L (23-27)
[2021-02-22] MEDS ORDERED: NOREPINEPHRINE 8 MG in SODIUM CHLORIDE 0.9% 242 ML IV PRN (05:35)
[2021-02-22] MEDS ORDERED: NOREPINEPHRINE 4 MG/4 ML VIAL IV ONE (05:36)
[2021-02-22] MEDS ORDERED: CALCIUM CHLORIDE 1,000 MG/10 ML SYRINGE IV ONE (06:08)
[2021-02-22] MEDS ORDERED: SODIUM CHLORIDE 0.9% 1,000 ML IV ONE (06:09)
[2021-02-22] MEDS: ALBUTEROL/IPRATROPIUM 3 ML NEB RESP TX SCH ×3 (07:50→18:55)
[2021-02-22] MEDS: PANTOPRAZOLE 40 MG VIAL IV SCH ×2 (08:15→21:07)
[2021-02-22] MEDS: FLUDROCORTISONE 0.1 MG TABLET PER TUBE SCH ×2 (09:03→21:02)
[2021-02-22] MEDS ORDERED: ASPIRIN CHEW 81 MG TABLET PO SCH (10:16)
[2021-02-22] MEDS: SODIUM BICARBONATE 650 MG TABLET PER TUBE SCH ×2 (13:55→18:01)
[2021-02-23] MEDS: SODIUM BICARBONATE 650 MG TABLET PER TUBE SCH ×4 (00:54→18:24)
[2021-02-23] MEDS: ALBUTEROL/IPRATROPIUM 3 ML NEB RESP TX SCH ×4 (01:00→18:50)
[2021-02-23] MEDS: PHENYLEPHRINE DRIP 40 MG/250 ML PREMIX IV PRN ×2 (01:11→02:17)
[2021-02-23 01:46] LABS: ABG Base Excess -14.4 MMOL/L (-2.5-2.5); ABG HCO3 13.6 MMOL/L (20-26); ABG Oxygen Saturation 98.1 % (95-100); ABG PCO2 22.4 MM HG (35-48); ABG PH 7.292 (7.35-7.45); ABG TCO2 9.7 MMOL/L (23-27); Basophils # 0.1 10*3/uL (0.0-0.2); Basophils % 0.2 % (0.0-0.8); Hematocrit 36.5 VOL% (35.7-47.0); Hemoglobin 11.7 GM/DL (12.0-16.0); Immature Granulocytes % 2.2 %; Immature Granulocytes Absolute 0.46 #; Lymphocytes # 1.1 10*3/uL (1.4-4.0); Lymphocytes % 5.3 % (21.3-54.2); Mean Corpuscular HGB Conc 32.1 GM/DL (32-36); Mean Corpuscular Volume 94.1 FL (87-102); Mean Platelet Volume 11.1 FL (9.6-12.0); NRBC # 0.44 10*3/uL; Neutrophils % 87.3 % (38.7-73.9); Platelet Count 203 T/CUMM (130-400); Red Blood Count 3.88 MC/CUMM (3.8-5.5); Red Cell Distribution Width 18.4 % (9.3-17.3); White Blood Count 20.8 T/CUMM (4-12)
[2021-02-23] MEDS ORDERED: ATROPINE 1 MG/10 ML SYRINGE IV ONE ×2 (01:57→01:58)
[2021-02-23] MEDS ORDERED: CALCIUM CHLORIDE 1,000 MG/10 ML SYRINGE IV ONE (01:57)
[2021-02-23] MEDS ORDERED: SODIUM BICARBONATE 50 MEQ/50 ML VIAL IV ONE (01:57)
[2021-02-23 02:08] LABS: Albumin 1.6 G/DL (3.4-5.0); Bilirubin,Total 1.2 MG/DL (0.20-1.00); Calcium 6.4 MG/DL (8.5-10.1); Osmolality,Calculated 271.7 MOS/KG (273-304); Total Protein 4.3 G/DL (6.4-8.2)
[2021-02-23] MEDS: DOPamine 800 MG/250 ML PREMIX IV PRN ×4 (02:10→23:38)
[2021-02-23 02:12] LABS: Band Neutrophils 2 % (0-10); Lymphocytes 4 % (20-55); Nucleated Red Blood Cells 4 (0-5); Platelet Estimate Normal; Segmented Neutrophils 90 % (50-85); Total Cells Counted 100
[2021-02-23] MEDS: SODIUM BICARB INJ 100 MEQ in SODIUM CHLORIDE 0.45% 1,000 ML IV SCH ×3 (02:12→23:38)
[2021-02-23 02:16] LABS: Potassium 6.5 MMOL/L (3.5-5.1)
[2021-02-23] MEDS ORDERED: INSULIN REGULAR 10 UNIT, CALCIUM GLUCONATE 1,000 MG in DEXTROSE 10% 250 ML IV ONE (02:26)
[2021-02-23] MEDS ORDERED: SODIUM POLYSTYRENE SULFATE 15 GM/60 ML BOTTLE PO ONE (02:27)
[2021-02-23] MEDS: HYDROCORTISONE 100 MG VIAL IV SCH ×4 (03:23→21:12)
[2021-02-23] MEDS: MEROPENEM 500 MG in SODIUM CHLORIDE 0.9% 100 ML IV SCH ×3 (03:23→21:12)
[2021-02-23 03:43] LABS: CKMB % 0.4 %
[2021-02-23 03:45] LABS: High Sensitive Troponin I* 155.8 ng/L (0-54)
[2021-02-23] MEDS: PHENYLEPHRINE INJ 160 MG in SODIUM CHLORIDE 0.9% 234 ML IV PRN ×3 (04:33→20:04)
[2021-02-23 06:12] LABS: ABG Base Excess -11.9 MMOL/L (-2.5-2.5); ABG HCO3 15.2 MMOL/L (20-26); ABG Oxygen Saturation 99.3 % (95-100); ABG PCO2 24.8 MM HG (35-48); ABG TCO2 11.4 MMOL/L (23-27)
[2021-02-23 06:36] LABS: Basophils # 0.1 10*3/uL (0.0-0.2); Basophils % 0.3 % (0.0-0.8); Eosinophils # 0.3 10*3/uL (0.0-0.87); Eosinophils % 1.2 % (0.00-10.9); Hematocrit 37.6 VOL% (35.7-47.0); Hemoglobin 12.5 GM/DL (12.0-16.0); Immature Granulocytes % 6.2 %; Immature Granulocytes Absolute 1.32 #; Lymphocytes # 0.8 10*3/uL (1.4-4.0); Lymphocytes % 3.5 % (21.3-54.2); Mean Corpuscular HGB Conc 33.2 GM/DL (32-36); Mean Corpuscular Volume 93.3 FL (87-102); Mean Platelet Volume 11.5 FL (9.6-12.0); Monocytes % 6.6 % (1.7-12.7); NRBC # 0.51 10*3/uL; Neutrophils % 82.2 % (38.7-73.9); Platelet Count 190 T/CUMM (130-400); Red Blood Count 4.03 MC/CUMM (3.8-5.5); Red Cell Distribution Width 18.2 % (9.3-17.3); White Blood Count 21.5 T/CUMM (4-12)
[2021-02-23 06:43] LABS: Calcium 7.2 MG/DL (8.5-10.1); Potassium 5.5 MMOL/L (3.5-5.1)
[2021-02-23 07:01] LABS: Band Neutrophils 7 % (0-10); Lymphocytes 1 % (20-55); Nucleated Red Blood Cells 5 (0-5); Platelet Estimate Normal; Segmented Neutrophils 85 % (50-85); Total Cells Counted 100
[2021-02-23] MEDS: FLUDROCORTISONE 0.1 MG TABLET PER TUBE SCH ×2 (08:33→21:12)
[2021-02-23] MEDS: PANTOPRAZOLE 40 MG VIAL IV SCH ×2 (08:36→21:12)
[2021-02-23] MEDS ORDERED: ASPIRIN CHEW 81 MG TABLET PO SCH (10:26)
[2021-02-24] MEDS: ALBUTEROL/IPRATROPIUM 3 ML NEB RESP TX SCH (00:09)
[2021-02-24] MEDS: SODIUM BICARBONATE 650 MG TABLET PER TUBE SCH (00:33)
[2021-02-24] MEDS: MEROPENEM 500 MG in SODIUM CHLORIDE 0.9% 100 ML IV SCH (03:55)
[2021-02-24] MEDS: HYDROCORTISONE 100 MG VIAL IV SCH (03:55)
[2021-02-24 04:01] LABS: ABG Base Excess -14.2 MMOL/L (-2.5-2.5); ABG HCO3 13.6 MMOL/L (20-26); ABG Oxygen Saturation 94.3 % (95-100); ABG PCO2 23.3 MM HG (35-48); ABG PH 7.287 (7.35-7.45); ABG PO2 90.4 MM HG (80-95); ABG TCO2 10.1 MMOL/L (23-27); Basophils # 0.1 10*3/uL (0.0-0.2); Basophils % 0.7 % (0.0-0.8); Eosinophils % 0.1 % (0.00-10.9); Hematocrit 36.9 VOL% (35.7-47.0); Hemoglobin 11.9 GM/DL (12.0-16.0); Immature Granulocytes Absolute 0.18 #; Lymphocytes # 0.4 10*3/uL (1.4-4.0); Lymphocytes % 2.4 % (21.3-54.2); Mean Corpuscular HGB Conc 32.2 GM/DL (32-36); Mean Corpuscular Volume 94.4 FL (87-102); Monocytes % 4.9 % (1.7-12.7); NRBC # 0.96 10*3/uL; Neutrophils % 90.9 % (38.7-73.9); Platelet Count 140 T/CUMM (130-400); Red Blood Count 3.91 MC/CUMM (3.8-5.5); Red Cell Distribution Width 18.5 % (9.3-17.3); White Blood Count 17.7 T/CUMM (4-12)
[2021-02-24] MEDS: PHENYLEPHRINE INJ 160 MG in SODIUM CHLORIDE 0.9% 234 ML IV PRN (04:21)
[2021-02-24 04:22] LABS: Band Neutrophils 3 % (0-10); Hypochromasia 1+; Lymphocytes 3 % (20-55); Microcytosis 1+; Nucleated Red Blood Cells 7 (0-5); Polychromasia Slight; Segmented Neutrophils 88 % (50-85); Total Cells Counted 100
[2021-02-24 04:23] LABS: Calcium 6.6 MG/DL (8.5-10.1); Osmolality,Calculated 279.4 MOS/KG (273-304); Ovalocytes Slight; Platelet Estimate Adequate
[2021-02-24 04:30] LABS: Potassium 6.7 MMOL/L (3.5-5.1)
[2021-02-24] MEDS: DOPamine 800 MG/250 ML PREMIX IV PRN (04:44)
[2021-02-24 04:56] VITALS: BP 69/48
[2021-02-24] MEDS ORDERED: MORPHINE 2 MG/1 ML SYRINGE IV PRN (05:10)
[2021-02-24] MEDS ORDERED: LORazepam 2 MG/1 ML VIAL IV PRN (05:10)
== END 2021-02-24 05:34 | disposition expired | DRG 917 ==
LOC: EDUNIT# → EDBD → N.ED 00:14 → SUATTDRO 02:43 → N.EDINP 02:43 → N.ICU 14:20
PROVIDERS: ADMIT Internal Medicine; ATTEND Internal Medicine